=== PATIENT | male | born 1970 | race Caucasian/White ===

== ENCOUNTER 2020-05-24 03:34 | Outpatient (CLI) | payer BC, SELFPAY ==
[2020-05-24 17:45] LABS: SARS-CoV-2 RNA PCR Negative
== END 2020-05-24 03:35 | disposition home or self-care (01) ==
LOC: ANHCOVIDDT 03:34
PROVIDERS: Visit Provider Urology
DX: Z01.812 Encounter for preprocedural laboratory examination (principal); Z20.828 Contact with and (suspected) exposure to other viral communicable diseases
CPT/HCPCS: 87635; C9803; U0003

== ENCOUNTER 2020-05-27 01:09 | Day surgery (SDC) | payer BC, SELFPAY ==
[2020-05-16 11:30] VITALS: BMI 27.1
--- NOTE | 2020-05-26 16:08 | PM.IMHP ---
H&P: HPI History of Present Illness Date/Time: 05/26/20 16:08 Chief complaint: Hunner's Ulcer Narrative: Lowell Lay is a 49 year old male with Hunners ulcers. Has recurrent symptoms Review of Systems Review of Systems: All systems reviewed & are unremarkable except as noted in HPI and below PMFSH Social History Social History Smoking status: Never smoker Spiritual care concerns: No Meds Home Medications and Allergies Home Medications Medication Instructions Recorded Confirmed Type Eye Promise 2 cap PO DAILY 05/16/20 History omeprazole 20 mg PO DAILY 05/16/20 05/16/20 History Allergies Allergy/AdvReac Type Severity Reaction Status Date / Time No Known Allergies Allergy Verified 05/16/20 11:30 Exam Const: General: cooperative HENMT: Head: normal to inspection Mouth: Yes Normal oral and palatal mucosa present Eyes: General: appearance normal, both eyes and all related structures GI: Inspection: normal to inspection Skin: General skin exam: normal color Neuro: General: oriented to person Assessment and Plan Assessment and plan (1) Hunner's ulcer: Code(s): N30.10 - Interstitial cystitis (chronic) without hematuria Status: Acute Assessment and Plan: cystoscopy, biopsy, steroid injection
[2020-05-27 06:16] VITALS: BP 127/87; PULSE 77; RESP 20; TEMP 36.3; O2SAT 99
[2020-05-27] MEDS: LACTATED RINGERS 1,000 ML 30 ML IV CONT (06:24)
--- NOTE | 2020-05-27 07:00 | WPDANESEPPF ---
Anes - Initial Pre Proc Eval Procedure: Operation Date: 05/27/20 07:30 Proposed Procedures p Cystoscopy, Bladder Biopsy, Steroid Injection - Twan Mueller MD Date/Time: 05/27/20 07:00 Surgeon: Twan Mueller MD Pre Op Diagnosis: Hunner's Ulcer Patient Data Age: 49 Gender: M Height: 1.8 m Weight: 87.6 kg Last Vital Signs Temp 36.3 C L 05/27/20 06:16 Pulse 77 05/27/20 06:16 Resp 20 05/27/20 06:16 BP 127/87 05/27/20 06:16 Pulse Ox 99 05/27/20 06:16 Allergies Allergy/AdvReac Type Severity Reaction Status Date / Time No Known Allergies Allergy Verified 05/27/20 06:16 Home Medications Medication Instructions Recorded Confirmed Type Eye Promise 2 cap PO DAILY 05/16/20 05/27/20 History omeprazole 20 mg PO DAILY 05/16/20 05/27/20 History Patient hx anesthesia problems: none Family hx anesthesia problems: none FOR[facility]LY [facility], [facility] Past Medical History Medical History (Updated 05/27/20 @ 07:01 by Ramon Justin MD) Chronic GERD Social History Social History Smoking status: Never smoker Spiritual care concerns: No Anes - Eval Final PreProcedure Day of Procedure 05/27/20 07:00 Patient weight: overweight Heart: regular rate and rhythm Lungs: clear to auscultation and normal air movement Airway: Mallampati scale class II Neurological: alert and oriented Last oral intake: >/= 8 hours ASA classification: II Emergent: no Anesthetic plan: proceed Anesthesia type and monitoring: general LMA Informed Consent: The patient's anesthetic plan and its attendant risks and benefits were discussed with the patient/family/POA. Questions were solicited and answers provided to the satisfaction of the patient/family/POA.
--- NOTE | 2020-05-27 07:30 | WPDHPUPDATE1 ---
History and Physical Update Update Date/Time: 05/27/20 07:30 History and Physical has been reviewed, including an updated exam of the patient. There are NO changes in the patient's condition. Risks, benefits, and alternatives have been discussed and questions answered. Patient agrees to proceed with procedure.
[2020-05-27] MEDS: ceFAZolin 2 GM/D5W 50 ML 2 GM/50 ML BAG IVPB (07:54)
[2020-05-27] MEDS: LIDOCAINE HCL 2% GEL UROJET 10 ML PKG MUCOUS MEM (08:20)
[2020-05-27] MEDS: TRIAMCINOLONE ACET INJ 40 MG/ML VIAL 200 MG XX (08:23)
--- NOTE | 2020-05-27 08:24 | PM.PROC ---
Procedure Note - Detailed Date of procedure: 05/27/20 Pre-op diagnosis: Hunner's Ulcer Hunner's ulcer Post-op diagnosis: same Procedure performed: Cystoscopy with bladder biopsy and injection of steroid Description of procedure: After anesthesia was induced the patient was correctly identified and informed consent was obtained. They are placed in the dorsal lithotomy position. There prepped and draped in a sterile fashion. A time-out performed. I performed cystoscopy. There were 2 areas of Hunner's ulceration inside the bladder. This was biopsied in generously fulgurated. I then injected Kenalog at a dose of 40 milligrams/mL. I injected 5 cc total. There was minimal bleeding from the injection sites. The bladder was examined under low insufflation pressures and there was no active bleeding. The bladder was drained. The awakened and transferred to the PACU in stable condition. Implants: None Anesthesia: MAC Surgeon: Twan Mueller MD Drains: No Packing: No Pathology: yes (Bladder biopsy) Complications: No immediate complications Condition: stable Disposition: PACU
[2020-05-27 08:31] VITALS: BP 103/73; PULSE 78; RESP 10; O2SAT 98
[2020-05-27 09:00] VITALS: BP 113/60; PULSE 77; RESP 14; O2SAT 99
[2020-05-27 09:30] VITALS: BP 104/73; PULSE 68; RESP 14
[2020-05-27 09:50] VITALS: BP 113/79; PULSE 74; RESP 14
== END 2020-05-27 10:00 | disposition home or self-care (01) ==
PROVIDERS: Visit Provider Urology
PROC: 0TBB8ZX Excision of Bladder, Via Natural or Artificial Opening Endoscopic, Diagnostic (ICD-10-PCS; CPT 52204; principal; 2020-05-27 07:30)
DX: N30.10 Interstitial cystitis (chronic) without hematuria (principal); K21.9 Gastro-esophageal reflux disease without esophagitis
CPT/HCPCS: 52204; 52283; 88305; A9270; J0690; J2250; J2704; J3010; J3301; J7120

== ENCOUNTER 2022-01-15 13:03 | Outpatient (CLI) | payer BC, SELFPAY | END 2022-01-15 13:04 | disposition home or self-care (01) | LOC: ANHLAB 13:04 | PROVIDERS: Visit Provider Urology | DX: N32.9 Bladder disorder, unspecified (principal); Z01.818 Encounter for other preprocedural examination | CPT/HCPCS: 87086 ==

== ENCOUNTER 2022-01-19 02:24 | Day surgery (SDC) | payer BC, SELFPAY ==
[2022-01-13 09:44] VITALS: BMI 26.4
--- NOTE | 2022-01-13 10:07 | PC.NURSE ---
Report to the Outpatient Waiting Room, entrance under the green pavilion located off [facility], at 0930 on 01-19-22. OR Time: 1130. - You and your visitor will be asked a series of questions to screen for COVID 19 for your protection. - Only one visitor is allowed at this time. - The patient visitor is requested to leave or wait in car when not with patient. - A mask is required within the hospital. Patients may have clear liquids (water, carbonated beverages, clear teas, apple juice) until 3 hours prior to surgery with a maximum of 20 ounces. 0830 - No food from midnight until time of surgery - Infants may have breast milk until 4 hours before surgery, infant formula 6 hours prior to surgery. - Children will be allowed to drink immediately following surgery. If applicable, please bring a bottle or sippy cup to assist with drinking. Juice, water, soda, and popsicles are readily available. For infants on formula, please bring formula the day of surgery. Pacifiers are allowed. Take the following medications with a SIP of water the morning of surgery: None Medications to discontinue per physician: Vitamins and supplements Date to take last dose: 01-16-22 Please no make-up, nail bermudian, hairspray, perfume, deodorant, or body powder the day of surgery. No jewelry (including any body piercings) or valuables the day of surgery, leave them at home. Please take a shower or bath the night before, or the morning of, surgery with an antibacterial soap. Wear comfortable, loose fitting clothing. Children are encouraged to wear pajamas. - Jewelry must be removed prior to entering the operating room. Rings and piercings that are not removed may be cut off. - The hospital will not accept responsibility for valuables. - Please leave all valuables, including medications, at home the day of surgery. If you are going home after surgery, a licensed otr tanker truck driver must drive you home. - NO public transportation without another adult. - We recommend that an adult stay with you for 24 hours following discharge. - We also recommend that you do not drive, make important decision, drink alcoholic beverages, or take any drugs that were not prescribed by your health care provider for at least 24 hours after your discharge time. For Pediatric surgeries, we recommend two adults accompany the child home (only one inside the building at this time). Follow any additional instructions given to you from your surgeon. If you or anyone in your household have experienced Covid symptoms in the past week, please notify your surgeon or the nurse liaison at the phone number below for possible testing. Telephone instructions given to Lowell Lay and asked if any additional questions and then verbalized understanding. Patient advised to call surgeon office or pre surgery nurse liaison [phone] if any additional questions.
--- NOTE | 2022-01-18 13:38 | PM.IMHP ---
H&P: HPI History of Present Illness Date/Time: 01/18/22 13:38 Chief Complaint: Hunner ulcer Narrative: recurrent Hunner ulcer. Here today for repeat treatment Review of Systems Review of Systems: All systems reviewed & are unremarkable except as noted in HPI and below PMFSH Past Medical History Medical History Chronic GERD Social History Social History Smoking status: Never smoker Second hand tobacco smoke exposure: No Alcohol intake: current Alcohol use details: socially/rarely Substance use: never Substance use type: does not use Spiritual care concerns: No Meds Home Medications and Allergies Home Medications Medication Instructions Recorded Confirmed Type Eye Promise 2 cap PO DAILY 05/16/20 01/13/22 History omeprazole 20 mg capsule,delayed 40 mg PO DAILY 05/16/20 01/13/22 History release Allergies Allergy/AdvReac Type Severity Reaction Status Date / Time No Known Allergies Allergy Verified 01/13/22 09:41 Exam Narrative: no acute distress normal breathing alert orient x3 Assessment and Plan Assessment and plan (1) Hunner's ulcer: Code(s): N30.10 - Interstitial cystitis (chronic) without hematuria Status: Acute Assessment and Plan: cystoscopy, bladder biopsy, steroid injection
[2022-01-19] VITALS (10 sets, daily range): BP systolic 94–136; BP diastolic 70–91; PULSE 58–78; RESP 8–20; TEMP 36.3–36.4; O2SAT 97–100
--- NOTE | 2022-01-19 07:14 | WPDHPUPDATE1 ---
History and Physical Update Update Date/Time: 01/19/22 07:14 History and Physical has been reviewed, including an updated exam of the patient. There are NO changes in the patient's condition. Risks, benefits, and alternatives have been discussed and questions answered. Patient agrees to proceed with procedure.
--- NOTE | 2022-01-19 10:16 | WPDANESEPPF ---
Anes - Initial Pre Proc Eval Procedure: Operation Date: 01/19/22 11:30 Proposed Procedures p Cystoscopy Bladder Biopsy with Steroid Injections - Twan Mueller MD Date/Time: 01/19/22 10:16 Surgeon: Twan Mueller MD Pre Op Diagnosis: bladder disorder unspecified Patient Data Age: 51 Gender: M Height: 1.8 m Weight: 86.18 kg Allergies Allergy/AdvReac Type Severity Reaction Status Date / Time No Known Allergies Allergy Verified 01/13/22 09:41 Home Medications Medication Instructions Recorded Confirmed Type Eye Promise 2 cap PO DAILY 05/16/20 01/13/22 History omeprazole 20 mg capsule,delayed 40 mg PO DAILY 05/16/20 01/13/22 History release Patient hx anesthesia problems: none Family hx anesthesia problems: none Results Review: All pre-operative results and documents have been reviewed as part of the pre-operative evaluation. COUNTS INCLUDE 234 BEDS AT THE [facility] Past Medical History Medical History (Updated 01/19/22 @ 10:16 by Luis Obrien MD) Chronic GERD PRIYANKA (obstructive sleep apnea) Surgical History Surgical History (Updated 01/19/22 @ 10:16 by Luis Obrien MD) Hx of cystoscopy Social History Social History Smoking status: Never smoker Second hand tobacco smoke exposure: No Alcohol intake: current Alcohol use details: socially/rarely Substance use: never Substance use type: does not use Living arrangements: with family Spiritual care concerns: No Anes - Eval Final PreProcedure Day of Procedure 01/19/22 10:16 Patient weight: normal Heart: regular rate and rhythm Lungs: clear to auscultation Airway: Mallampati scale class II Neurological: alert and oriented Last oral intake: >/= 8 hours ASA classification: II Anesthetic plan: proceed Anesthesia type and monitoring: general GIVS and standard monitoring Results Review: All pre-operative results and documents have been reviewed as part of the pre-operative evaluation. Informed Consent: The patient's anesthetic plan and its attendant risks and benefits were discussed with the patient/family/POA. Questions were solicited and answers provided to the satisfaction of the patient/family/POA.
[2022-01-19] MEDS: LACTATED RINGERS 1,000 ML 30 ML IV CONT (10:45)
[2022-01-19] MEDS: ceFAZolin 2 GM/D5W 50 ML 2 GM/50 ML BAG IVPB (10:55)
[2022-01-19] MEDS: TRIAMCINOLONE ACET INJ 40 MG/ML VIAL 200 MG XX (11:10)
[2022-01-19] MEDS: LIDOCAINE HCL 2% GEL UROJET 10 ML PKG MUCOUS MEM (11:16)
--- NOTE | 2022-01-19 11:23 | W.PM.PROC2 ---
Procedure Note - Detailed Date of Procedure 01/19/22 Pre-op Diagnosis Hunner's ulceration Post-op Diagnosis Same Procedure Performed Cystoscopy, bladder biopsy, injection of steroid Surgeon Twan Mueller MD Anesthesia General Indications This is a gentleman with recurrent Hunner's ulcer variety interstitial cystitis. He has recurrent symptoms. He is here for treatment. He understands risks of bleeding, infection, inability to resolve the symptoms. Lack of presence of ulceration. He agrees to proceed Findings 2 separate Hunner's ulcerations near the dome of the bladder. Description of Procedure He has correctly identified. Informed consent obtained. He is brought the operating room. He was given general anesthesia. He was prepped and draped in a sterile fashion. Time-out performed. Cystoscopy was performed. He had mild trabeculations. Ureteral orifices were normal. There is no bladder tumors. There were 2 areas of Hunner's ulceration near the dome of the bladder. One of these areas was biopsied. Both were generously fulgurated. I then injected Kenalog 200 mg total into the ulcerated areas. Additional cautery was done to the injection sites. His bladder was drained. He was awakened and transferred to PACU stable condition. Implants None Estimated Blood Loss 2 Drains No Pathology Yes (Bladder biopsy) Complications No immediate complications Condition Stable
--- NOTE | 2022-01-19 11:44 | SUR.PHASEI ---
oral airway removed at 1142
[2022-01-19] MEDS: oxyCODONE HCL (*CRX) 5 MG TAB IR PO (12:40)
[2022-01-19] MEDS: PHENAZOPYRIDINE HCL 100 MG TABLET 200 MG PO (13:21)
== END 2022-01-19 13:50 | disposition home or self-care (01) ==
PROVIDERS: Visit Provider Urology
PROC: 0TBB8ZX Excision of Bladder, Via Natural or Artificial Opening Endoscopic, Diagnostic (ICD-10-PCS; CPT 52204; principal; 2022-01-19 11:30)
DX: N30.10 Interstitial cystitis (chronic) without hematuria (principal); K21.9 Gastro-esophageal reflux disease without esophagitis; G47.33 Obstructive sleep apnea (adult) (pediatric)
CPT/HCPCS: 52204; 52283; 88305; A9270; J0690; J1100; J2250; J2405; J2704; J3010; J3301; J7120

== ENCOUNTER 2022-10-09 01:13 | Day surgery (SDC) | payer BC, SELFPAY ==
[2022-09-30 08:44] VITALS: BMI 26.4
--- NOTE | 2022-09-30 08:47 | PC.NURSE ---
Report to the Outpatient Waiting Room, entrance under the green pavilion located off [facility], at time 0915 on date 10/09/22. Planned Procedure Time: 1115. Time changes happen often and if your time is changed the preop area will call you the afternoon before. - You and your visitor will be asked to self-screen and do not enter if you have any COVID symptoms. - Only one visitor is requested with a max of two and NO children visitors are allowed at this time. - The patient visitor may be requested to leave or wait in car when not with patient due to distancing restrictions. - A mask is optional within the hospital at this time. Patients may have clear liquids (water, carbonated beverages, clear teas, apple juice) until 3 hours prior to surgery with a maximum of 20 ounces. - No food from midnight until time of surgery Take the following medications with a SIP of water the morning of surgery: TRAMADOL IF NEEDED DO NOT STOP ANY OF YOUR OTHER PRESCRIPTION MEDICATIONS PRIOR TO SURGERY EXCEPT THE FOLLOWING Medications to discontinue per physician: VITAMINS/SUPPLEMENTS Date to take last dose: 10/05/22 Please no make-up, nail english, hairspray, perfume, deodorant, or body powder the day of surgery. No jewelry (including any body piercings) or valuables the day of surgery, leave them at home. Please take a shower or bath the night before, or the morning of, surgery with an antibacterial soap. Wear comfortable, loose fitting clothing. - Jewelry must be removed prior to entering the operating room. Rings and piercings that are not removed may be cut off. - The hospital will not accept responsibility for valuables. - Please leave all valuables, including medications, at home the day of surgery. If you are going home after surgery, a licensed dedicated truck driver must drive you home. - NO public transportation without another adult if you receive anesthesia. - We recommend that an adult stay with you for 24 hours following discharge. - We also recommend that you do not drive, make important decision, drink alcoholic beverages, or take any drugs that were not prescribed by your health care provider for at least 24 hours after your discharge time. Follow any additional instructions given to you from your surgeon. If you or anyone in your household have experienced Covid symptoms in the past week, please notify your surgeon or the nurse liaison at the phone number below for possible testing. Telephone instructions given to PT - LOKI BECK and asked if any additional questions and then verbalized understanding. Patient advised to call surgeon office or pre surgery nurse liaison [phone] if any additional questions.
--- NOTE | 2022-10-05 12:48 | PM.IMHP ---
H&P: HPI History of Present Illness Date/Time: 10/05/22 12:48 Chief Complaint: Hunner's ulcer Narrative: Ready for another steroid injection Review of Systems Review of Systems: All systems reviewed & are unremarkable except as noted in HPI and below PMFSH Past Medical History Medical History Chronic GERD PRIYANKA (obstructive sleep apnea) Surgical History Surgical History Hx of cystoscopy Social History Social History Smoking status: Never smoker Second hand tobacco smoke exposure: No Alcohol intake: current Alcohol use details: VERY RARE Substance use: never Substance use type: does not use Living arrangements: with family Spiritual care concerns: No Meds Home Medications and Allergies Home Medications Medication Instructions Recorded Confirmed Type Eye Promise 2 cap PO DAILY 05/16/20 09/30/22 History omeprazole 20 mg capsule,delayed 40 mg PO DAILY 05/16/20 09/30/22 History release phenazopyridine 200 mg tablet 200 mg PO TID PRN pain 6 doses #30 01/19/22 09/30/22 Rx (Pyridium) tabs tramadol 50 mg tablet 50 mg PO Q6H PRN pain #20 tabs 01/19/22 09/30/22 Rx Allergies Allergy/AdvReac Type Severity Reaction Status Date / Time No Known Allergies Allergy Verified 09/30/22 08:44 Exam Narrative: No acute distress Normal breathing Alert orient x3 Assessment and Plan Assessment and plan (1) Hunner's ulcer: Code(s): N30.10 - Interstitial cystitis (chronic) without hematuria Status: Acute Plan Cystoscopy, bladder biopsy, steroid injection. Understands risks of bleeding, infection, damage to the retract, lack of efficacy. Agrees to proceed
--- NOTE | 2022-10-09 07:14 | WPDHPUPDATE1 ---
History and Physical Update Update Date/Time: 10/09/22 07:14 History and Physical has been reviewed, including an updated exam of the patient. There are NO changes in the patient's condition. Risks, benefits, and alternatives have been discussed and questions answered. Patient agrees to proceed with procedure.
[2022-10-09 10:08] VITALS: BP 128/80; PULSE 84; RESP 14; TEMP 36.7; O2SAT 98
--- NOTE | 2022-10-09 10:10 | P.PNAN_ITS ---
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 Patient Data Age: 52 Gender: M Height: 1.8 m Weight: 86.2 kg Allergies Allergy/AdvReac Type Severity Reaction Status Date / Time No Known Allergies Allergy Verified 10/09/22 10:13 Home Medications Medication Instructions Recorded Confirmed Type Eye Promise 2 cap PO DAILY 05/16/20 09/30/22 History omeprazole 20 mg capsule,delayed 40 mg PO DAILY 05/16/20 09/30/22 History release phenazopyridine 200 mg tablet 200 mg PO TID PRN pain 6 doses #30 01/19/22 09/30/22 Rx (Pyridium) tabs tramadol 50 mg tablet 50 mg PO Q6H PRN pain #20 tabs 01/19/22 09/30/22 Rx Patient hx anesthesia problems: none Family hx anesthesia problems: none Results Review: All pre-operative results and documents have been reviewed as part of the pre- operative evaluation. FORMERLY [facility] Past Medical History Medical History Chronic GERD PRIYANKA (obstructive sleep apnea) Surgical History Surgical History Hx of cystoscopy Social History Social History Smoking status: Never smoker Second hand tobacco smoke exposure: No Alcohol intake: current Alcohol use details: VERY RARE Substance use: never Substance use type: does not use Living arrangements: with family Spiritual care concerns: No Anes - Eval Final PreProcedure Day of Procedure 10/09/22 10:10 Patient weight: normal Heart: regular rate and rhythm Lungs: clear to auscultation Airway: Mallampati scale class II Neurological: alert and oriented Last oral intake: >/= 8 hours ASA classification: II Emergent: no Anesthetic plan: proceed Anesthesia type and monitoring: general LMA and standard monitoring Results Review: All pre-operative results and documents have been reviewed as part of the pre- operative evaluation. Informed Consent: The patient's anesthetic plan and its attendant risks and benefits were discussed with the patient/family/POA. Questions were solicited and answers provided to the satisfaction of the patient/family/POA.
[2022-10-09] MEDS: LACTATED RINGERS 1,000 ML 30 ML IV CONT (10:13)
[2022-10-09] MEDS: ceFAZolin 2 GM/D5W 50 ML 2 GM/50 ML BAG IVPB (11:19)
[2022-10-09] MEDS: LIDOCAINE HCL 2% GEL UROJET 10 ML PKG MUCOUS MEM (11:28)
[2022-10-09] MEDS: TRIAMCINOLONE ACET INJ 40 MG/ML VIAL 200 MG XX (11:29)
--- NOTE | 2022-10-09 11:44 | P.OP_ITS ---
Procedure Note - Detailed Date of Procedure 10/09/22 Pre-op Diagnosis hypervascular lesion of urinary bladder Post-op Diagnosis Same Procedure Performed Cystoscopy, bladder biopsy, steroid injection Surgeon Twan Mueller MD Anesthesia MAC and Local Indications this is a man with recurrent Hunner's ulcerations. He is here today for repeat treatment. Understands risks of bleeding, infection, damage to the urinary tract, need for repeat procedures. Blood agrees to proceed Findings Hunner's ulceration at anterior bladder neck /dome of the bladder Description of Procedure he has correctly identified. Informed consent obtained. From the operating room. He was given MAC anesthesia. He was placed in dorsal lithotomy position. Pressure points were padded. He was given appropriate perioperative a ntibiotics. A time-out performed. I applied Uro jet. I performed cystoscopy. He had a minimally obstructive prostate. He had areas of Hunner's ulceration the anterior bladder neck and near the dome was bladder. There was some dystrophic calcifications the area was removed. I biopsied the bladder lesion. I then injected Kenalog. 2 mg total. 40 milligrams/mL. I then generously fulgurated the biopsy and bleeding sites. There was no bleeding under low insufflation pressures. His bladder was drained. He was awakened transferred to PACU in stable condition. Estimated Blood Loss 1 Pathology Yes ( Bladder biopsy) Complications No immediate complications Condition Stable Disposition PACU
[2022-10-09 11:45] VITALS: BP 114/87; PULSE 89; RESP 15; O2SAT 97
[2022-10-09 12:15] VITALS: BP 125/78; PULSE 73
[2022-10-09 12:45] VITALS: BP 135/80; PULSE 81; RESP 12
== END 2022-10-09 13:10 | disposition home or self-care (01) ==
PROVIDERS: Visit Provider Urology
PROC: 0TBB8ZX Excision of Bladder, Via Natural or Artificial Opening Endoscopic, Diagnostic (ICD-10-PCS; CPT 52204; principal; 2022-10-09 11:15)
DX: N30.10 Interstitial cystitis (chronic) without hematuria (principal); K21.9 Gastro-esophageal reflux disease without esophagitis; G47.33 Obstructive sleep apnea (adult) (pediatric)
CPT/HCPCS: 52204; 52283; 88305; J0690; J2250; J2704; J3010; J3301; J7120

== ENCOUNTER 2023-06-07 01:23 | Day surgery (SDC) | payer BC, SELFPAY ==
[2023-05-31 11:31] VITALS: BMI 26.4
--- NOTE | 2023-05-31 11:35 | PC.NURSE ---
Report to the Outpatient Waiting Room, entrance under the green pavilion located off [facility], at time 1330 on date 06/07/23. Planned Procedure Time: 1530. Time changes happen often and if your time is changed the preop area will call you the afternoon before. - You and your visitor will be asked to self-screen and do not enter if you have any COVID symptoms. - A mask is optional within the hospital at this time. Patients may have clear liquids (water, carbonated beverages, clear teas, apple juice) until 3 hours prior to surgery with a maximum of 20 ounces. - No food from midnight until time of surgery Take the following medications with a SIP of water the morning of surgery: METOPROLOL DO NOT STOP ANY OF YOUR OTHER PRESCRIPTION MEDICATIONS PRIOR TO SURGERY ?EXCEPT THE FOLLOWING Medications to discontinue per physician: N/A Date to take last dose: N/A Please no make-up, nail mexican, hairspray, perfume, deodorant, or body powder the day of surgery. No jewelry (including any body piercings) or valuables the day of surgery, leave them at home. Please take a shower or bath the night before, or the morning of, surgery with an antibacterial soap. Wear comfortable, loose fitting clothing. - Jewelry must be removed prior to entering the operating room. Rings and piercings that are not removed may be cut off. - The hospital will not accept responsibility for valuables. - Please leave all valuables, including medications, at home the day of surgery. If you are going home after surgery, a licensed tractor driver teamster must drive you home. - NO public transportation without another adult if you receive anesthesia. - We recommend that an adult stay with you for 24 hours following discharge. - We also recommend that you do not drive, make important decision, drink alcoholic beverages, or take any drugs that were not prescribed by your health care provider for at least 24 hours after your discharge time. Follow any additional instructions given to you from your surgeon. If you or anyone in your household have experienced Covid symptoms in the past week, please notify your surgeon or the nurse liaison at the phone number below for possible testing. Telephone instructions given to PT - LOKI BECK and asked if any additional questions and then verbalized understanding. Patient advised to call surgeon office or pre surgery nurse liaison [phone] if any additional questions.
--- NOTE | 2023-06-06 09:27 | PM.IMHP ---
H&P: HPI History of Present Illness Date/Time: 06/06/23 09:27 Chief Complaint: surgical procedure Narrative: history of Hunner's ulceration. Presents for repeat proceed Review of Systems Review of Systems: All systems reviewed & are unremarkable except as noted in HPI and below PMFSH Past Medical History Medical History Chronic GERD PRIYANKA (obstructive sleep apnea) Surgical History Surgical History Hx of cystoscopy Social History Social History Smoking status: Never smoker Second hand tobacco smoke exposure: No Alcohol intake: never Alcohol use details: VERY RARE Substance use: never Substance use type: does not use Living arrangements: with family Spiritual care concerns: No Meds Home Medications and Allergies Home Medications Medication Instructions Recorded Confirmed Type omeprazole 20 mg capsule,delayed 40 mg PO DAILY 05/16/20 05/31/23 History release metoprolol succinate 25 mg 25 mg PO DAILY 05/31/23 05/31/23 History tablet,extended release 24 hr tadalafil 5 mg tablet 5 mg PO DAILY 05/31/23 05/31/23 History tamsulosin 0.4 mg capsule 0.4 mg PO DAILY 05/31/23 05/31/23 History Allergies Allergy/AdvReac Type Severity Reaction Status Date / Time No Known Allergies Allergy Verified 05/31/23 11:28 Exam Narrative: no acute distress normal breathing alert and orient x3 Assessment and Plan Assessment and plan (1) 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 Understands risks of bleeding, infection, damage to the urinary tract, need for repeat procedures, agrees to proceed
[2023-06-07] VITALS (9 sets, daily range): BP systolic 98–157; BP diastolic 69–103; PULSE 76–97; RESP 11–16; TEMP 36.1–37.1; O2SAT 96–100
--- NOTE | 2023-06-07 07:13 | WPDHPUPDATE1 ---
History and Physical Update Update Date/Time: 06/07/23 07:13 History and Physical has been reviewed, including an updated exam of the patient. There are NO changes in the patient's condition. Risks, benefits, and alternatives have been discussed and questions answered. Patient agrees to proceed with procedure.
[2023-06-07] MEDS: LACTATED RINGERS 1,000 ML 30 ML IV CONT ×3 (08:56→13:29)
--- NOTE | 2023-06-07 10:31 | P.PNAN_ITS ---
Anes - Initial Pre Proc Eval Procedure: Operation Date: 06/07/23 10:30 Proposed Procedures p Cystoscopy, Bladder Biopsy with Steroid Injection - Twan Mueller MD Date/Time: 06/07/23 10:31 Surgeon: Twan Mueller MD Pre Op Diagnosis: hyper vascular lesion of bladder Patient Data Age: 53 Gender: M Height: 1.8 m Weight: 84.7 kg Last Vital Signs Temp 98.8 F 06/07/23 08:39 Pulse 81 06/07/23 08:39 Resp 16 06/07/23 08:39 BP 136/83 06/07/23 08:39 Pulse Ox 96 06/07/23 08:39 O2 Del Method Room Air 06/07/23 08:39 Allergies Allergy/AdvReac Type Severity Reaction Status Date / Time No Known Allergies Allergy Verified 05/31/23 11:28 Home Medications Medication Instructions Recorded Confirmed Type omeprazole 20 mg capsule,delayed 40 mg PO DAILY 05/16/20 05/31/23 History release metoprolol succinate 25 mg 25 mg PO DAILY 05/31/23 05/31/23 History tablet,extended release 24 hr tadalafil 5 mg tablet 5 mg PO DAILY 05/31/23 05/31/23 History tamsulosin 0.4 mg capsule 0.4 mg PO DAILY 05/31/23 05/31/23 History phenazopyridine 200 mg tablet 200 mg PO TID PRN pain 6 doses #6 06/07/23 Rx (Pyridium) tabs tramadol 50 mg tablet 50 mg PO Q6H PRN pain #20 tabs 06/07/23 Rx Patient hx anesthesia problems: none Family hx anesthesia problems: none Results Review: All pre-operative results and documents have been reviewed as part of the pre- operative evaluation. [facility] Past Medical History Medical History Chronic GERD PRIYANKA (obstructive sleep apnea) Surgical History Surgical History Hx of cystoscopy Social History Social History Smoking status: Never smoker Second hand tobacco smoke exposure: No Alcohol intake: never Alcohol use details: VERY RARE Substance use: never Substance use type: does not use Living arrangements: with family Spiritual care concerns: No Anes - Eval Final PreProcedure Day of Procedure 06/07/23 10:31 Patient weight: normal Heart: regular rate and rhythm Lungs: clear to auscultation Airway: Mallampati scale Neurological: alert and oriented Last oral intake: >/= 8 hours ASA classification: II Emergent: no Anesthetic plan: proceed Anesthesia type and monitoring: general LMA and standard monitoring Results Review: All pre-operative results and documents have been reviewed as part of the pre- operative evaluation. Informed Consent: The patient's anesthetic plan and its attendant risks and benefits were discussed with the patient/family/POA. Questions were solicited and answers provided to the satisfaction of the patient/family/POA.
[2023-06-07] MEDS: ceFAZolin 2 GM/D5W 50 ML 2 GM/50 ML BAG IVPB (10:38)
[2023-06-07] MEDS: LIDOCAINE HCL 2% GEL UROJET 10 ML PKG MUCOUS MEM (10:49)
[2023-06-07] MEDS: TRIAMCINOLONE ACET INJ 40 MG/ML VIAL 200 MG IM (10:50)
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
--- NOTE | 2023-06-07 13:33 | SUR.PHASEII ---
1245 PATIENT STATES HE VOIDED A STREAM WITH DRIPS OF BLOOD. 1330 BLADDER SCAN SHOWED 31 ML URINE.
--- NOTE | 2023-06-07 14:20 | SUR.PHASEII ---
1405 PATIENT REPORTS A SECOND VOID WITH A STREAM OF URINE.
== END 2023-06-07 14:20 | disposition home or self-care (01) ==
PROVIDERS: Visit Provider Urology
PROC: 0TBB8ZX Excision of Bladder, Via Natural or Artificial Opening Endoscopic, Diagnostic (ICD-10-PCS; CPT 52204; principal; 2023-06-07 10:30)
DX: N30.10 Interstitial cystitis (chronic) without hematuria (principal); D72.18 Eosinophilia in diseases classified elsewhere; K21.9 Gastro-esophageal reflux disease without esophagitis; G47.33 Obstructive sleep apnea (adult) (pediatric); Z79.891 Long term (current) use of opiate analgesic
CPT/HCPCS: 52204; 52283; 88305; J0690; J1100; J2250; J2405; J2704; J3010; J3301; J7120

== ENCOUNTER 2023-12-17 00:29 | Day surgery (SDC) | payer BC, SELFPAY ==
[2023-12-10 08:35] VITALS: BMI 26.4
--- NOTE | 2023-12-10 08:49 | PC.NURSE ---
Report to the Outpatient Waiting Room, entrance under the green pavilion located off [facility], at time ___6:00AM____ on date ___12/17/23____. Planned Procedure Time: __7:30AM . Time changes happen often and if your time is changed the preop area will call you the afternoon before. - You and your visitor will be asked to self-screen and do not enter if you have any COVID symptoms. - A mask is optional within the hospital at this time. Patients may have clear liquids (water, carbonated beverages, clear teas, apple juice) until 3 hours prior to surgery with a maximum of 20 ounces. - No food from midnight until time of surgery - Infants may have breast milk until 4 hours before surgery, infant formula 6 hours prior to surgery. - Children will be allowed to drink immediately following surgery. If applicable, please bring a bottle or sippy cup to assist with drinking. Juice, water, soda, and popsicles are readily available. For infants on formula, please bring formula the day of surgery. Pacifiers are allowed. Take the following medications with a SIP of water the morning of surgery: ___METOPROLOL DO NOT STOP ANY OF YOUR OTHER PRESCRIPTION MEDICATIONS PRIOR TO SURGERY ?EXCEPT THE FOLLOWING Medications to discontinue per physician NONE Date to take last dose Please no make-up, nail arabic, hairspray, perfume, deodorant, or body powder the day of surgery. No jewelry (including any body piercings) or valuables the day of surgery, leave them at home. Please take a shower or bath the night before, or the morning of, surgery with an antibacterial soap. Wear comfortable, loose fitting clothing. Children are encouraged to wear pajamas. - Jewelry must be removed prior to entering the operating room. Rings and piercings that are not removed may be cut off. - The hospital will not accept responsibility for valuables. - Please leave all valuables, including medications, at home the day of surgery. If you are going home after surgery, a licensed line haul driver must drive you home. - NO public transportation without another adult if you receive anesthesia. - We recommend that an adult stay with you for 24 hours following discharge. - We also recommend that you do not drive, make important decision, drink alcoholic beverages, or take any drugs that were not prescribed by your health care provider for at least 24 hours after your discharge time. For Pediatric surgeries, we recommend two adults accompany the child home. Follow any additional instructions given to you from your surgeon. If you or anyone in your household have experienced Covid symptoms in the past week, please notify your surgeon or the nurse liaison at the phone number below for possible testing. Telephone instructions given to ____PATIENT and asked if any additional questions and then verbalized understanding. Patient advised to call surgeon office or pre surgery nurse liaison [phone] if any additional questions.
--- NOTE | 2023-12-12 08:54 | PM.IMHP ---
H&P: HPI History of Present Illness Date/Time: 12/12/23 08:54 Chief Complaint: Hunner Ulcer Narrative: presents for cystoscopy and steroid injection Review of Systems Review of Systems: All systems reviewed & are unremarkable except as noted in HPI and below PMFSH Past Medical History Medical History Chronic GERD PRIYANKA (obstructive sleep apnea) Surgical History Surgical History Hx of cystoscopy Social History Social History Smoking status: Never smoker Second hand tobacco smoke exposure: No Alcohol intake: never Alcohol use details: VERY RARE Substance use: never Substance use type: does not use Living arrangements: with family Additional living arrangements comments: & KIDS Spiritual care concerns: No Meds Home Medications and Allergies Home Medications Medication Instructions Recorded Confirmed Type metoprolol succinate 25 mg 25 mg PO QAM 05/31/23 12/10/23 History tablet,extended release 24 hr tadalafil 5 mg tablet 5 mg PO DAILY 05/31/23 12/10/23 History phenazopyridine 200 mg tablet 200 mg PO TID PRN pain 6 doses #6 06/07/23 12/10/23 Rx (Pyridium) tabs omeprazole 40 mg capsule,delayed 40 mg PO DAILY 12/10/23 12/10/23 History release Allergies Allergy/AdvReac Type Severity Reaction Status Date / Time No Known Allergies Allergy Verified 12/10/23 08:32 Exam Narrative: NAD normal breathing A+O x3 Assessment and Plan Assessment and plan (1) 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
--- NOTE | 2023-12-17 04:42 | WPDHPUPDATE1 ---
History and Physical Update Update Date/Time: 12/17/23 04:42 History and Physical has been reviewed, including an updated exam of the patient. There are NO changes in the patient's condition. Risks, benefits, and alternatives have been discussed and questions answered. Patient agrees to proceed with procedure.
[2023-12-17] MEDS: LACTATED RINGERS 1,000 ML 30 ML IV CONT (06:24)
[2023-12-17 06:45] VITALS: BP 131/87; PULSE 72; RESP 16; TEMP 36.5; O2SAT 99
--- NOTE | 2023-12-17 07:14 | P.PNAN_ITS ---
Anes - Initial Pre Proc Eval Procedure: Operation Date: 12/17/23 07:30 Proposed Procedures p Cystoscopy, Bladder Biopsy with Steroid Injection - Twan Mueller MD Date/Time: 12/17/23 07:14 Surgeon: Twan Mueller MD Pre Op Diagnosis: hunners ulcer Patient Data Age: 53 Gender: M Height: 1.8 m Weight: 84.1 kg Last Vital Signs Temp 97.7 F 12/17/23 06:45 Pulse 72 12/17/23 06:45 Resp 16 12/17/23 06:45 BP 131/87 12/17/23 06:45 Pulse Ox 99 12/17/23 06:45 O2 Del Method Room Air 12/17/23 06:45 Allergies Allergy/AdvReac Type Severity Reaction Status Date / Time No Known Allergies Allergy Verified 12/17/23 06:08 Home Medications Medication Instructions Recorded Confirmed Type metoprolol succinate 25 mg 25 mg PO QAM 05/31/23 12/17/23 History tablet,extended release 24 hr tadalafil 5 mg tablet 5 mg PO DAILY 05/31/23 12/10/23 History phenazopyridine 200 mg tablet 200 mg PO TID PRN pain 6 doses #6 06/07/23 12/10/23 Rx (Pyridium) tabs omeprazole 40 mg capsule,delayed 40 mg PO DAILY 12/10/23 12/17/23 History release Patient hx anesthesia problems: none Family hx anesthesia problems: none Results Review: All pre-operative results and documents have been reviewed as part of the pre- operative evaluation. [facility] Past Medical History Medical History Chronic GERD PRIYANKA (obstructive sleep apnea) Surgical History Surgical History Hx of cystoscopy Social History Social History Smoking status: Never smoker Second hand tobacco smoke exposure: No Alcohol intake: never Alcohol use details: VERY RARE Substance use: never Substance use type: does not use Living arrangements: with family Additional living arrangements comments: & KIDS Spiritual care concerns: No Anes - Eval Final PreProcedure Day of Procedure 12/17/23 07:14 Patient weight: overweight Heart: regular rate and rhythm Lungs: clear to auscultation Airway: Mallampati scale class II Neurological: alert and oriented Last oral intake: >/= 8 hours ASA classification: II Emergent: no Anesthetic plan: proceed Anesthesia type and monitoring: general LMA and standard monitoring Results Review: All pre-operative results and documents have been reviewed as part of the pre- operative evaluation. HTN, pt has not yet taken b aleshia this am, PRIYANKA, not compliant w CPAP. Informed Consent: The patient's anesthetic plan and its attendant risks and benefits were discussed with the patient/family/POA. Questions were solicited and answers provided to the satisfaction of the patient/family/POA.
[2023-12-17] MEDS: ceFAZolin 2 GM/D5W 50 ML 2 GM/50 ML BAG IVPB (07:36)
[2023-12-17] MEDS: TRIAMCINOLONE ACET INJ 40 MG/ML VIAL 200 MG IM (07:41)
[2023-12-17 07:57] VITALS: BP 133/103; PULSE 75; RESP 18; O2SAT 94
--- NOTE | 2023-12-17 08:02 | P.OP_ITS ---
Procedure Note - Detailed Date of Procedure 12/17/23 Pre-op Diagnosis hunners ulcer Post-op Diagnosis Same Procedure Performed Cystoscopy, bladder biopsy, injection of steroid Surgeon Twan Mueller MD District Court Judge None Anesthesia MAC and Local Indications A gentleman with Hunner's ulcer variety interstitial cystitis. She was here today for repeat treatment. Understands risks of bleeding, infection, damage to inject, need for repeat procedures. He agrees to proceed Findings 2 areas of Hunner's ulceration on the anterior bladder neck dome area of the bladder Description of Procedure He has correctly identified. Informed consent obtained. From the operating room. He was given monitored anesthesia care. Placed in dorsal lithotomy position. Prepped and draped sterile fashion. He was given appropriate perioperative antibiotics. Time-out performed. I performed cystoscopy. Prostate is nonobstructive. Ureteral orifices were normal. There was mild trabeculation. On the anterior bladder neck/dome area of the bladder there was 2 areas of Hunner's ulceration. There was dystrophic calcifications. These calcifications were removed with a grasper. I then biopsied the ulcerated areas. I sent this for analysis. I then injected Kenalog. 2 mg total. A concentration of 40 milligrams/mL for a total of 5 cc. I then fulgurated the injection sites and the ulcerated areas. All fulguration was done away from the ureteral orifice. There was no significant bleeding under low insufflation pressures. His bladder was drained. He was awakened transferred to PACU in stable condition
[2023-12-17 08:20] VITALS: BP 148/89; PULSE 64; RESP 18; O2SAT 98
[2023-12-17 08:40] VITALS: BP 137/84; PULSE 69; RESP 18
== END 2023-12-17 08:42 | disposition home or self-care (01) ==
PROVIDERS: Visit Provider Urology
PROC: 0TBB8ZX Excision of Bladder, Via Natural or Artificial Opening Endoscopic, Diagnostic (ICD-10-PCS; CPT 52204; principal; 2023-12-17 07:30)
DX: N30.10 Interstitial cystitis (chronic) without hematuria (principal); G47.33 Obstructive sleep apnea (adult) (pediatric); K21.9 Gastro-esophageal reflux disease without esophagitis
CPT/HCPCS: 52204; 52283; 88305; J0690; J2704; J3010; J3301; J7120

== ENCOUNTER 2024-06-19 00:29 | Day surgery (SDC) | payer BC, SELFPAY ==
[2024-06-12 14:01] VITALS: BMI 26.5
--- NOTE | 2024-06-12 14:02 | PC.NURSE ---
Report to the Outpatient Waiting Room, entrance under the green pavilion located off [facility], at time _0900_ on date _[id number]_. Planned Procedure Time: _1100_.? Time changes happen often and if your time is changed the preop area will call you the afternoon before. - You and your visitor will be asked to self-screen and do not enter if you have any COVID symptoms. Please call surgeon if you need to reschedule. - A mask is optional within the hospital at this time. Patients may have clear liquids (water, carbonated beverages, clear teas, apple juice) until 3 hours prior to surgery with a maximum of 20 ounces. - No food from midnight until time of surgery and no smoking Take only the following medications with a SIP of water on the morning of surgery: ___Metoprolol DO NOT STOP ANY OF YOUR OTHER PRESCRIPTION MEDICATIONS PRIOR TO SURGERY EXCEPT THE FOLLOWING Medications to discontinue per physician __None____ Please no make-up, nail pakistani, hairspray, perfume, deodorant, or body powder the day of surgery.? No jewelry (including any body piercings) or valuables the day of surgery, leave them at home.? Please take a shower or bath the night before, or the morning of, surgery with an antibacterial soap.? Wear comfortable, loose fitting clothing.? - Jewelry must be removed prior to entering the operating room.? Rings and piercings that are not removed may be cut off. - The hospital will not accept responsibility for valuables.? - Please leave all valuables, including medications, at home the day of surgery. If you are going home after surgery, a licensed local intermodal truck driver must drive you home.? - NO public transportation without another adult if you receive anesthesia. - We recommend that an adult stay with you for 24 hours following discharge. - We also recommend that you do not drive, make important decision, drink alcoholic beverages, or take any drugs that were not prescribed by your health care provider for at least 24 hours after your discharge time. Follow any additional instructions given to you from your surgeon. Telephone instructions given to Sonny___and asked if any additional questions and then verbalized understanding. Patient advised to call surgeon office or pre surgery nurse liaison [phone] if any additional questions.
--- NOTE | 2024-06-18 13:50 | PM.IMHP ---
H&P: HPI History of Present Illness Date/Time: 06/18/24 13:50 Chief Complaint: hunner ulcer Narrative: repeat steroid injection Review of Systems Review of Systems: All systems reviewed & are unremarkable except as noted in HPI and below PMFSH Past Medical History Medical History Chronic GERD PRIYANKA (obstructive sleep apnea) Surgical History Surgical History Hx of cystoscopy Social History Social History Smoking status: Never smoker Second hand tobacco smoke exposure: No Alcohol intake: current Alcohol use details: VERY RARE Substance use: never Substance use type: does not use Living arrangements: with family Additional living arrangements comments: & KIDS Spiritual care concerns: No Meds Home Medications and Allergies Home Medications Medication Instructions Recorded Confirmed Type metoprolol succinate 25 mg 25 mg PO QAM 05/31/23 06/12/24 History tablet,extended release 24 hr tadalafil 5 mg tablet 5 mg PO DAILY 05/31/23 06/12/24 History phenazopyridine 200 mg tablet 200 mg PO TID PRN pain 6 doses #6 06/07/23 06/12/24 Rx (Pyridium) tabs omeprazole 40 mg capsule,delayed 40 mg PO DAILY 12/10/23 06/12/24 History release tramadol 50 mg tablet 50 mg PO Q6H PRN pain #10 tabs 12/17/23 06/12/24 Rx Allergies Allergy/AdvReac Type Severity Reaction Status Date / Time No Known Allergies Allergy Verified 06/12/24 13:55 Exam Narrative: NAD A+O x3 Assessment and Plan Assessment and plan (1) 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
--- NOTE | 2024-06-19 04:40 | WPDHPUPDATE1 ---
History and Physical Update Update Date/Time: 06/19/24 04:40 History and Physical has been reviewed, including an updated exam of the patient. There are NO changes in the patient's condition. Risks, benefits, and alternatives have been discussed and questions answered. Patient agrees to proceed with procedure.
[2024-06-19 10:00] VITALS: BP 133/86; PULSE 73; RESP 14; TEMP 36.6; O2SAT 97
[2024-06-19] MEDS: LACTATED RINGERS 1,000 ML 30 ML IV CONT (10:00)
--- NOTE | 2024-06-19 10:16 | WPDANESEPPF ---
Anes - Initial Pre Proc Eval Procedure: Operation Date: 06/19/24 11:00 Proposed Procedures p Cystoscopy, Bladder Biopsy with Steroid Injection - Twan Mueller MD Date/Time: 06/19/24 10:16 Surgeon: Twan Mueller MD Pre Op Diagnosis: hunners ulcer Patient Data Age: 54 Gender: M Height: 1.8 m Weight: 84.2 kg Last Vital Signs Temp 36.6 C 06/19/24 10:00 Pulse 73 06/19/24 10:00 Resp 14 06/19/24 10:00 BP 133/86 06/19/24 10:00 Pulse Ox 97 06/19/24 10:00 O2 Del Method Room Air 06/19/24 10:00 Allergies Allergy/AdvReac Type Severity Reaction Status Date / Time No Known Allergies Allergy Verified 06/19/24 10:05 Home Medications Medication Instructions Recorded Confirmed Type metoprolol succinate 25 mg 25 mg PO QAM 05/31/23 06/19/24 History tablet,extended release 24 hr tadalafil 5 mg tablet 5 mg PO DAILY 05/31/23 06/12/24 History phenazopyridine 200 mg tablet 200 mg PO TID PRN pain 6 doses #6 06/07/23 06/12/24 Rx (Pyridium) tabs omeprazole 40 mg capsule,delayed 40 mg PO DAILY 12/10/23 06/12/24 History release tramadol 50 mg tablet 50 mg PO Q6H PRN pain #10 tabs 12/17/23 06/12/24 Rx Patient hx anesthesia problems: none Family hx anesthesia problems: none Results Review: All pre-operative results and documents have been reviewed as part of the pre-operative evaluation. [facility] Past Medical History Medical History (Updated 06/19/24 @ 10:16 by Luis Obrien MD) Chronic GERD HTN (hypertension) PRIYANKA (obstructive sleep apnea) Surgical History Surgical History Hx of cystoscopy Social History Social History Smoking status: Never smoker Second hand tobacco smoke exposure: No Alcohol intake: current Alcohol use details: VERY RARE Substance use: never Substance use type: does not use Living arrangements: with family Additional living arrangements comments: & KIDS Spiritual care concerns: No Anes - Eval Final PreProcedure Day of Procedure 06/19/24 10:16 Patient weight: normal Heart: regular rate and rhythm Lungs: clear to auscultation Airway: Mallampati scale class II Neurological: alert and oriented Last oral intake: >/= 8 hours ASA classification: II Emergent: no Anesthetic plan: proceed Anesthesia type and monitoring: general LMA and standard monitoring Results Review: All pre-operative results and documents have been reviewed as part of the pre-operative evaluation. Informed Consent: The patient's anesthetic plan and its attendant risks and benefits were discussed with the patient/family/POA. Questions were solicited and answers provided to the satisfaction of the patient/family/POA.
[2024-06-19] MEDS: ceFAZolin 2 GM/D5W 50 ML 2 GM/50 ML BAG IVPB (10:34)
[2024-06-19] MEDS: LIDOCAINE HCL 2% GEL UROJET 10 ML PKG MUCOUS MEM (10:50)
[2024-06-19] MEDS: TRIAMCINOLONE ACET INJ 40 MG/ML VIAL 200 MG IM (10:51)
--- NOTE | 2024-06-19 10:55 | W.PM.PROC2 ---
Procedure Note - Detailed Date of Procedure 06/19/24 Pre-op Diagnosis hunners ulcer Post-op Diagnosis Same Procedure Performed Cystoscopy, bladder biopsy, injection of steroids Surgeon Twan Mueller MD Anesthesia MAC and Local (Uro jet) Indications A gentleman with recurrent Hunner's ulcer variety interstitial cystitis. Presents today for repeat treatment Findings Areas of Hunner's ulceration on the dome of the bladder Description of Procedure He has correctly identified. Informed consent obtained. From the operating room. He was given monitored anesthesia care. Placed in dorsal lithotomy position. Prepped draped sterile fashion. Time-out performed. Examination revealed no obstruction of the prostatic urethra. He had a small prostate without obstructing lobes. He had mild trabeculations. Ureteral orifices were normal on the floor the bladder. There were 2 areas of Hunner's ulceration on the anterior bladder neck dome area. This was biopsied and sent for analysis. I then injected Kenalog. 40 milligrams/mL of Kenalog. 5 mL total. I then generously fulgurated the sites. All fulguration was done away from the ureteral orifice. There was no bleeding low insufflation pressures. The bladder was drained. He was awakened transferred to PACU in stable condition. Estimated Blood Loss 1 Pathology Yes (Bladder biopsy) Complications None Condition Stable Disposition PACU
[2024-06-19 11:02] VITALS: BP 141/82; PULSE 76; RESP 14
[2024-06-19 11:30] VITALS: BP 136/79; PULSE 64; RESP 14; O2SAT 99
[2024-06-19 12:00] VITALS: BP 144/90; PULSE 71; RESP 14
== END 2024-06-19 12:20 | disposition home or self-care (01) ==
PROVIDERS: Visit Provider Urology
PROC: 0TBB8ZX Excision of Bladder, Via Natural or Artificial Opening Endoscopic, Diagnostic (ICD-10-PCS; CPT 52204; principal; 2024-06-19 11:00)
DX: N30.10 Interstitial cystitis (chronic) without hematuria (principal); I10 Essential (primary) hypertension; G47.33 Obstructive sleep apnea (adult) (pediatric); K21.9 Gastro-esophageal reflux disease without esophagitis
CPT/HCPCS: 52283; 52204; 88305; J0690; J2003; J2250; J2704; J3010; J3301; J7120

== ENCOUNTER 2024-12-29 01:06 | Day surgery (SDC) | payer BC, SELFPAY ==
--- NOTE | 2024-12-26 04:52 | PM.IMHP ---
H&P: HPI History of Present Illness Date/Time: 12/26/24 04:52 Chief Complaint: hunner ulcer Narrative: repeat steroid injection Review of Systems Review of Systems: All systems reviewed & are unremarkable except as noted in HPI and below PMFSH Past Medical History Medical History HTN (hypertension) PRIYANKA (obstructive sleep apnea) Chronic GERD Surgical History Surgical History Hx of cystoscopy Social History Social History Smoking status: Never smoker Second hand tobacco smoke exposure: No Alcohol intake: current Alcohol use details: VERY RARE Substance use: never Substance use type: does not use Living arrangements: with family Additional living arrangements comments: & KIDS Spiritual care concerns: No Meds Home Medications and Allergies Home Medications ?Medication ?Instructions ?Recorded ?Confirmed ?Type metoprolol succinate 25 mg 25 mg PO QAM 05/31/23 06/19/24 History tablet,extended release 24 hr tadalafil 5 mg tablet 5 mg PO DAILY 05/31/23 06/12/24 History phenazopyridine 200 mg tablet 200 mg PO TID PRN pain 6 doses #6 06/07/23 06/12/24 Rx (Pyridium) tabs omeprazole 40 mg capsule,delayed 40 mg PO DAILY 12/10/23 06/12/24 History release tramadol 50 mg tablet 50 mg PO Q6H PRN pain #10 tabs 12/17/23 06/12/24 Rx tramadol 50 mg tablet 50 mg PO Q6H PRN pain #20 tabs 06/19/24 Rx Allergies Allergy/AdvReac Type Severity Reaction Status Date / Time No Known Allergies Allergy Verified 06/19/24 10:05 Exam Narrative: NAD A+O x3 Assessment and Plan Assessment and plan (1) 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
[2024-12-26 09:33] VITALS: BMI 25.8
--- NOTE | 2024-12-26 09:34 | PC.NURSE ---
Report to the Outpatient Waiting Room, entrance under the green pavilion located off [facility], at time _0615_ on date _[id number]_. Planned Procedure Time: _0815_.? Time changes happen often and if your time is changed the preop area will call you the afternoon before. - You and your visitor will be asked to self-screen and do not enter if you have any COVID symptoms. Please call surgeon if you need to reschedule. - A mask is optional within the hospital at this time. Patients may have clear liquids (water, carbonated beverages, clear teas, apple juice) until 3 hours prior to surgery with a maximum of 20 ounces. - No food from midnight until time of surgery and no smoking, or chewing tobacco (or any form of nicotine). No chewing gum, candy or mints. Take only the following medications with a SIP of water on the morning of surgery: ___Metoprolol____ DO NOT STOP ANY OF YOUR OTHER PRESCRIPTION MEDICATIONS PRIOR TO SURGERY EXCEPT THE FOLLOWING Hold all vitamins and supplements for 3 days per anesthesiologist. Medications to discontinue per physician Date to take last dose Please no make-up, nail kiswahili, hairspray, perfume, deodorant, or body powder the day of surgery.? No jewelry (including any body piercings) or valuables the day of surgery, leave them at home.? Please take a shower or bath the night before, or the morning of, surgery with an antibacterial soap.? Wear comfortable, loose fitting clothing.? - Jewelry must be removed prior to entering the operating room.? Rings and piercings that are not removed may be cut off. - The hospital will not accept responsibility for valuables.? - Please leave all valuables, including medications, at home the day of surgery. If you are going home after surgery, a licensed power screwdriver operator must drive you home.? - NO public transportation without another adult if you receive anesthesia. - We recommend that an adult stay with you for 24 hours following discharge. - We also recommend that you do not drive, make important decision, drink alcoholic beverages, or take any drugs that were not prescribed by your health care provider for at least 24 hours after your discharge time. Follow any additional instructions given to you from your surgeon. Telephone instructions given to __Lowell___and asked if any additional questions and then verbalized understanding. Patient advised to call surgeon office or pre surgery nurse liaison [phone] if any additional questions.
--- OUTSIDE RECORDS SUMMARY | 2024-12-29 01:08 | XMS_ITS | Referral Summary ---
Author Organization [facility] Address [address] [place] [phone] Care Team Providers Care Environmental Services Tech Name Role Phone Jose Medina ALDO Primary Care Provider [phone] Allergies No known active allergies Medications ofloxacin (OCUFLOX) 0.3 % ophthalmic solutionIndicati ons:as needed 0 05/06/2019 Activ e omeprazole (PriLOSEC) 20 mg capsule Take 20 mg by mouth daily Active Active Problems Problem Noted Date Diagnosed Date Skin lesions 05/08/2019 Assessment & Plan (05/08/2019 7:03 PM CDT): Overall Condition: New Acute Problem Treatment: Referral: Derm-Dr. Mack Follow up PRN Bilateral hearing loss due to cerumen impaction 05/08/2019 Assessment & Plan (05/08/2019 7:04 PM CDT): Overall Condition: New Acute Problem and s/p Ear Lavage Treatment: New Medication: OTC Deborax Follow up PRN Sleep apnea 09/01/2017 Chronic fatigue 09/01/2017 Benign prostatic hyperplasia with lower urinary tract symptoms 09/01/2017 Gastro-esophageal reflux disease without esophag itis 07/02/2016 Social History Tobacco Use Types Packs/Day Years Used Date Smoking Tobacco: Never Alcohol Use Standard Drinks/Week Comments Not Currently 0 (1 standard drink = 0.6 oz pur e alcohol) Personal Safety Answer Date Recorded Getting School Help Needed Not on file 10/14 Sex and Gender Information Value Date Recorded Sex Assigned at Not on file Legal Sex Male 7:47 PM ALIGNING INSPECTOR Gender Identity Male 10/25/2020 1:24 PM CDT Sexual Orientation Straight 10/25/2020 1: 24 PM CDT Last Filed Vital Signs Vital Sign Reading Time Taken Comments Blood Pressure 120/70 08/14/2021 1:12 PM ALIGNING INSPECTOR Pulse 88 08/14/2021 1:12 PM ALIGNING INSPECTOR Temperature 37 C (98.6 F) 05/08/2019 3:48 PM CDT Respiratory Rate 16 05/08/2019 3:48 PM CDT Oxygen Saturation 97% 08/14/2021 1:12 PM ALIGNING INSPECTOR Inhaled Oxygen Concentration - - Weight 85.7 kg (189 lb) 08/14/2021 1:12 PM ALIGNING INSPECTOR Height 177.8 cm (5' 10) 08/14/2021 1:12 PM ALIGNING INSPECTOR Body Mass Index 27.12 08/14/2021 1:12 PM ALIGNING INSPECTOR Plan of Treatment Not on file Insurance [employer]ICE [employer] PPO [place] Care Teams Environmental Services Tech Relationship Specialty Start Date End Date Jose Medina NP [address] [place] [address] PCP - General Nurse Practitioner 10/28/20
--- OUTSIDE RECORDS SUMMARY | 2024-12-29 01:08 | XMS_ITS | Encounter Summary ---
Author Organization [facility] Facility Care Team Providers Care Automotive Service Advisor Name Role Phone Brian Drew MD Primary Care Provider [phone] Jose Medina NP Primary Care Provider [phone] Encounter Details Date Type Department Care Team (Latest Contact Info) Description 04/26/2018 Orders Only [facility] CLINCONV ProviderPedro MD [address] [place] [id number] Social History Tobacco Use Types Packs/Day Years Used Date Smoking Tobacco: Never Assessed Sex and Gender Information Value Date Recorded Sex Assigned at Not on file Legal Sex Male 7:47 PM TECHNICAL AIDE Gender Identity Male 10/25/2020 1:24 PM CDT Sexual Orientation Straight 10/25/2020 1: 24 PM CDT documented as of this encounter Plan of Treatment Not on file documented as of this encounter Procedures Procedure Name Priority Date/Time Associated Diagnosis Comments SCAN - LABS 06/02/2018 12:00 AM CDT SCAN - LABS 06/02/2018 12:00 AM CDT documented in this encounter Results * SCAN - LABS (06/02/2018 12:00 AM CDT) Narrative 06/02/2018 12:00 AM CDT Ordered by an unspecified provider. Historical Provider Final Res ult * SCAN - LABS (06/02/2018 12:00 AM CDT) Narrative 06/02/2018 12:00 AM CDT Ordered by an unspecified provider. us Historical Provider Final Res ult documented in this encounter Visit Diagnoses Not on filedocumented in this encounter Care Teams Automotive Service Advisor Relationship Specialty Start Date End Date Brian Drew MD PCP - General Family Medicine 05/08/19 10/27/20 Jose Medina NP [address] [place] [address] PCP - General Nurse Practitioner 10/28/20 documented as of this encounter
--- OUTSIDE RECORDS SUMMARY | 2024-12-29 01:08 | XMS_ITS | Encounter Summary ---
Author Organization [facility] Address [address] [place] [address] Care Team Providers Care Kiss Mixer Name Role Phone Hipolito Christiansen MD Unavailable [phone] Twan Mueller MD Unavailable [phone] Robi Rader MD Unavailable [phone] Jose Medina Primary Care Provider + Latricia Martin MD Unavailable Encounter Details Date Type Department Care Team (Late Contact Info) Description 03/28/2019 Lab Requisition [facility] Care Pathology Lab [address] [place] [address] Lori Gonzalez MD [address] [place] [address] Illness Social History Tobacco Use Types Packs/Day Years Used Date Smoking Tobacco: Never Assessed Sex and Gender Information Value Date Recorded Sex Assigned at Not on file Legal Sex Male 2:25 PM CDT Gender Identity Not on file Sexual Orientation Not on file documented as of this encounter Plan of Treatment Upcoming Encounters Date Type Department Care Team ([facility] Contact Info) Description 03/23/2025 7:30 AM CDT Office Visit [facility] [address] [place] [address] Jose Medina APRN-CNP [address] [place] [address] documented as of this encounter Procedures Procedure Name Priority Date/Time Associated Diagnosis Comments PATHOLOGY TISSUE Routine 03/24/2019 5:24 PM CDT Illness documented in this encounter Results * PATHOLOGY TISSUE (03/24/2019 5:24 PM CDT) Case Report Surgical Pathology Report Case: [id number] Authorizing Provider: Lori Gonzalez MD Collected: 03/24/2019 05:24 PM Ordering Location: [facility] Pathology Lab Received: 03/28/2019 05:25 PM Pathologist: Nadia White MD Specimen: Slide Consultation, OSC: 03/29/2019 7:19 PM CDT [facility] Final Diagnosis Urinary bladder, erythema, biopsy (, 03/24/2019): - Chronic cystitis with plasma cells and eosinophils (see description) 03/29/2019 7:19 PM CDT [facility] PATH[facility] LAB at 1919 CDT Microscopic Description and Comment The urinary bladder biopsy has a modestly disrupted urothelium overlying lamina propria with intense chronic inflammation. The inflammatory infiltrate contains lymphocytes, abundant plasma cells, and abundant eosinophils (17 eosinophils per high power field; calculated 71 per mm2). The density of eosinophils is moderate, and could be seen in other types of cystitis as well as in less florid eosinophilic cystitis. The superficial lamina propria has proliferating capillaries and a small amount of hemorrhage. Findings could be compatible with a clinical diagnosis of interstitial cystitis. 03/29/2019 7:19 PM CDT [facility] PATH[facility] Clinical History 48 year old man, clinical impression Hunner's ulcer 03/29/2019 7:19 PM CDT [facility] PATH[facility] Materials Received Received is 1 H and E stained slide (A1) from [facility], [address] [place] [address], [address], [place] [address], labeled with the patient s name Lowell Agee and , along with the corresponding pathology gross description also labeled with the patient's full name Lowell Agee . All material will be returned. 03/29/2019 7:19 PM CDT [facility] PATHOLOGY LAB Disclaimer The performance characteristics of all immunohistochemical and indirect immunofluorescence stains (if any) cited in this report were determined by the Histopathology Laboratory of [facility]. Some of these tests were developed by our own laboratory and have not been cleared or approved by the US Food and Drug Administration. The FDA does not require this test to go through premarket FDA review. These tests are used for clinical purposes. They should not be regarded as investigational or for research. This laboratory is certified under the Clinical Laboratory Improvement Amendments (CLIA) as qualified to perform high complexity clinical laboratory testing. This case has been personally reviewed and interpreted by the attending (teaching) pathologist. 03/29/2019 7:19 PM CDT [facility] PATHOLOGY LAB Embedded Images 03/29/2019 7:19 PM T [facility] PATHOLOGY LAB Pathology/Cytolo gy SURGICAL PATHOLOGY CONSULTATION AND REPORT ON REFERRED SLIDES PREPARED ELSEWHERE / Unknown 03/24/2019 5:24 PM CDT 03/28/2019 5:25 PM CDT us Lori Gonzalez MD LAB - PATHOLOGY/CYTOLOGY ORDERAB LES Final Result Performing Organization Address City/State/[facility] Co de Phone Number [facility] PATHOLOGY LAB [facility] [phone] documented in this encounter Visit Diagnoses Diagnosis Illness Other unknown and unspecified cause of morbidity or mortality documented in this encounter Care Teams Kiss Mixer Relationship Specialty Start Date End Date Adam Jose, PHYSICAL SECURITY ENGINEER-MOLD MAKER APPRENTICE [address] [place] [address] PCP - General Nurse Practitioner 01/18/23 Hipolito Christiansen MD [address] [address] Interventional Cardiology 03/04/22 [place] [address] [address] [facility] [address] [place] [phone] Urology 03/04/22 Robi Rader MD [address] [place] [address] Physician Cardiology 10/27/22 Latricia Martin MD [address] [facility], [address] [place] [address] Gastroenterology 08/04/23 documented as of this encounter
--- OUTSIDE RECORDS SUMMARY | 2024-12-29 01:09 | XMS_ITS | Clinical Summary ---
Author Organization [facility] Address [address] [place] [phone] Care Team Providers Care Control Board Operator Name Role Phone Jose Medina ALDO Primary Care Provider [phone] Allergies No known active allergies Medications ofloxacin [...] Gastro-esophageal reflux disease without esophag itis 07/02/2016 Medical History Medical History Date Comments Hyperlipidemia Family History Relation Name Status Comments Father Alive Mother Alive Social History Tobacco Use Types Packs/Day Years Used Date Smoking Tobacco: Never Alcohol Use Standard Drinks/Week Comments Not Currently 0 (1 standard drink = 0.6 oz pur e alcohol) Personal Safety Answer Date Recorded Getting School Help Needed Not on file 10/14 Sex and Gender Information Value Date Recorded Sex Assigned at Not on file Legal Sex Male 7:47 PM MOLDED GOODS CONTROLS OPERATOR Gender Identity Male 10/25/2020 1:24 PM CDT Sexual Orientation Straight 10/25/2020 1: 24 PM CDT Obstetrics History Last Filed Vital Signs Vital Sign Reading Time Taken Comments Blood Pressure 120/70 08/14/2021 1:12 PM MOLDED GOODS CONTROLS OPERATOR Pulse 88 08/14/2021 1:12 PM MOLDED GOODS CONTROLS OPERATOR Temperature 37 C (98.6 F) 05/08/2019 3:48 PM CDT Respiratory Rate 16 05/08/2019 3:48 PM CDT Oxygen Saturation 97% 08/14/2021 1:12 PM MOLDED GOODS CONTROLS OPERATOR Inhaled Oxygen Concentration - - Weight 85.7 kg (189 lb) 08/14/2021 1:12 PM MOLDED GOODS CONTROLS OPERATOR Height 177.8 cm (5' 10) 08/14/2021 1:12 PM MOLDED GOODS CONTROLS OPERATOR Body Mass Index 27.12 08/14/2021 1:12 PM MOLDED GOODS CONTROLS OPERATOR Plan of Treatment Not on file Insurance CHOICE [facility] PPO [place] Care Teams Control Board Operator Relationship Specialty Start Date End Date Jose Medina NP [address] [place] [address] PCP - General Nurse Practitioner 10/28/20
--- OUTSIDE RECORDS SUMMARY | 2024-12-29 01:09 | XMS_ITS | Encounter Summary ---
Author Organization [facility] Address [address] [facility] [place] [address] Care Team Providers Care Heel Seam Rubber Name Role Phone Hipolito Christiansen MD Unavailable [phone] Twan Mueller MD Unavailable [phone] Robi Rader MD Unavailable [phone] Jose Medina Primary Care Provider + Latricia Martin MD Unavailable Encounter Details Date Type Department Care Team (Late Contact Info) Description 11/04/2020 Op/Procedure Report External [facility] [address] [address] Document, Scanned Social History Tobacco Use Types Packs/Day Years Used Date Smoking Tobacco: Never Assessed Sex and Gender Information Value Date Recorded Sex Assigned at Not on file Legal Sex Male 2:25 PM CDT Gender Identity Not on file Sexual Orientation Not on file documented as of this encounter Plan of Treatment Upcoming Encounters Date Type Department Care Team (Late Contact Info) Description 03/23/2025 7:30 AM CDT Office Visit [facility] [address] [place] [phone] Jose Medina APRN-CNP [address] [place] [phone] documented as of this encounter Visit Diagnoses Not on filedocumented in this encounter Care Teams Heel Seam Rubber Relationship Specialty Start Date End Date Jose Medina, MANAGER COMPENSATION-FOREIGN LAW CONSULTANT [address] [place] [address] PCP - General Nurse Practitioner 01/18/23 Hipolito Christiansen MD [address] [facility] [address] [place] [phone] Interventional Cardiology 03/04/22 [place] [address] [address] Urology 03/04/22 Robi Rader MD [address] [place] [address] Physician Cardiology 10/27/22 Latricia Martin MD [address] [facility], [address] [place] [address] Gastroenterology 08/04/23 documented as of this encounter
--- OUTSIDE RECORDS SUMMARY | 2024-12-29 01:09 | XMS_ITS | Clinical Summary ---
Author Organization [facility] Address [address] [place] [address] Care Team Providers Care Broadcast Traffic Coordinator Name Role Phone Hipolito Christiansen MD Unavailable [phone] Twan Mueller MD Unavailable [phone] Robi Rader MD Unavailable [phone] Jose Medina APRN-[facility] Primary Care Provider + Latricia Martin MD Unavailable Source Comments [facility],non-owned Affiliates and Associated Physician Practices is amultiple site organization consisting of ambulatory clinics and hospital sitesin [place], [place], [place] and [place]. This disclosure is being madepursuant to the Care Everywhere program and may not contain all information available regarding this patient. Last updated 18.[facility] Allergies No known active allergies Medications * Be aware that medications may not be up to date on this document. Alwaysverify current medications with the patient. metoprolol succinate XL 24hr (Toprol XL) 25 MG tablet Take 1 (one) tablet by mouth at bedtime Active tadalafil (Cialis) 5 MG tabletIndication s:Erectile dysfunction, unspecified erectile dysfunction type Take 1 (one) tablet by mouth once daily 90 tablet 4 4 Active omeprazole (PriLOSEC) 40 MG capsuleIndicatio ns:Gastro-esopha geal reflux disease without esophagitis Take 1 (one) capsule by mouth once daily 90 capsule 4 4 Active tiZANidine (Zanaflex) 2 MG tabletIndication s:Acute bilateral low back pain, unspecified whether sciatica present Take 1 (one) tablet by mouth every 8 hours as needed for Muscle Spasms 30 tablet 5 Active cephalexin (Keflex) 500 MG capsuleIndicatio ns: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 Take 1 (one) capsule by mouth 3 times daily for 7 days 21 capsule 5 12/13/19 25 Active Problems Problem Noted Date Diagnosed Date Substernal chest pain 02/10/2023 Erectile dysfunction 02/10/2023 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 Mixed hyperlipidemia 03/04/2022 Seasonal allergies 03/04/2022 Prostate cancer screening 03/04/2022 Ulcer of bladder 03/04/2022 Bilateral hearing loss due to cerumen impaction 05/08/2019 Overview (03/04/2022): Last Assessment & Plan: Overall Condition: New Acute Problem and s/p Ear Lavage Treatment: New Medication: OTC Deborax Follow up PRN Last Assessment & Plan: Overall Condition: New Acute Problem and s/p Ear Lavage Treatment: New Medication: OTC Deborax Follow up PRN Skin lesions 05/08/2019 Overview (03/04/2022): Last Assessment & Plan: Overall Condition: New Acute Problem Treatment: Referral: Kinjal Mack Follow up PRN Last Assessment & Plan: Overall Condition: New Acute Problem Treatment: Referral: Kinjal Mack Follow up PRN Bilateral hearing loss due to cerumen impaction 05/08/2019 Overview (03/11/2022): Last Assessment & Plan: Overall Condition: New Acute Problem and s/p Ear Lavage Treatment: New Medication: OTC Deborax Follow up PRN Skin lesions 05/08/2019 Overview (03/11/2022): Last Assessment & Plan: Overall Condition: New Acute Problem Treatment: Referral: Derm-Dr. 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 12/19/2024 Travel 12/05/2024 7:30 AM CDT Procedure visit [facility] - Dermatology [address] [place] [phone] Geovanny Kohler MD 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 11/27/2024 8:00 AM CDT Office Visit [address] [phone] Jose Medina APRN-ANAMIKA Acute bilateral low back pain, unspecified whether sciatica present (Primary Dx); Chronic left SI joint pain; Screening for diabetes mellitus (DM) 11/06/[address] [phone] Jose Medina APRN-PUTAWAY DRIVER Results 11/01/[address] [phone] Jose Medina APRN-CNP Results (XR) 10/27/2024 8:35 AM CDT - 10/27/2024 11:59 PM CDT Hospital Encounter [facility] - Radiology [address] [place] [phone] Jose Medina APRN-CNP Discharge Disposition: Home or Self Care 10/27/2024 7:30 AM CDT Office Visit [address] [phone] Jose Medina APRN-CNP Acute bilateral low back pain, unspecified whether sciatica present (Primary Dx); Chronic left SI joint pain 10/23/2024 Orders Only [address] [phone] Jose Medina APRN-CNP 10/23/[address] [phone] Jose Medina APRN-CNP Question from Last 3 Months Immunizations Immunization Administration Dates Next Due ANGELA IZQUIERDO PRIMARY 18+YR 10/21/2020 MMR VACCINE 06/14/1992 TD (AGE 8-ADULT) 06/14/1992 Family History Medical History Relation Name Comments Cancer - Prostate Father Relation Name Status Comments Father Social History Tobacco Use Types Packs/Day Years Used Date Smoking Tobacco: Never Smokeless Tobacco: Never Tobacco Cessation:Counseling Given: Not Answered Alcohol Use Standard Drinks/Week Comments Never 0 (1 standard drink = 0.6 oz pur e alcohol) PHQ-2 Answer Date Recorded Patient Health Questionnaire-2 Score 0 11/27/2024 Sex and Gender Information Value Date Recorded Sex Assigned at Not on file Legal Sex Male 2:25 PM CDT Gender Identity Not on file Sexual Orientation Not on file Last Filed Vital Signs Vital Sign Reading Time Taken Comments Blood Pressure 138/86 11/27/2024 7:57 AM CDT Pulse 77 11/27/2024 7:57 AM CDT Temperature 36.7 C (98 F) 11/27/2024 7:57 AM CDT Respiratory Rate 18 11/27/2024 7:57 AM CDT Oxygen Saturation 97% 11/27/2024 7:57 AM CDT Inhaled Oxygen Concentration - - Weight 83 kg (183 lb) 11/27/2024 7:57 AM CDT Height 180.3 cm (5' 11) 11/27/2024 7:57 AM CDT Body Mass Index 25.52 11/27/2024 7:57 AM CDT Plan of Treatment Upcoming Encounters Date Type Department Care Team ([facility] st Contact Info) Description 03/23/2025 7:30 AM CDT Office Visit [facility]- Family Medicine [address] [place] [phone] Jose Medina, COMPENSATION AND BENEFITS MANAGER-PUTAWAY DRIVER [address] [place] [phone] Health Maintenance Due Date Last Done Comments COLOGUARD (AGES 45-75) - COLON CA SCREENING 1970 CT COLONOGRAPHY - COLON CA SCREENING 1970 FIT - COLON CA SCREENING 1970 FLEX SIG - COLON CA SCREENING 1970 DTAP/TDAP/TD VACCINES (2 - Td or Tdap) 06/14/2002 06/14/1992 PNEUMOCOCCAL VACCINE 50+ (1 of 1 - PCV) 2021 ZOSTER VACCINE (1 of 2) 2021 SCREENING FOR DIABETES 03/11/2025 03/11/2022 INFLUENZA VACCINE (Season Ended) 2025 Postponed from 04/02/2025 (Patient Refused) COVID-19 VACCINE (2 - season) 2026 10/21/2020 Postponed from 04/02/2024 (Patient Refused) LIPID TESTING 05/23/2029 05/23/2024, 03/11/2022 COLON MONITORING 11/04/2030 11/04/2020 COLONOSCOPY - COLON CA SCREENING 11/04/2030 11/04/2020, 11/04/2020 (Done Outside Per Report) Colorectal Cancer Screening 11/04/2030 DEPRESSION SCREENING Completed 10/27/2024, 08/13/2023, 10/23/2022, Additional history exists HEPATITIS B VACCINE Discontinued HEPATITIS C SCREENING Discontinued HIB VACCINE Aged Out No longer eligi ble based on patient's age to complete this topic HIV SCREENING Discontinued HPV VACCINE Aged Out No longer eligi ble based on patient's age to complete this topic MENINGOCOCCAL (Group B) VACCINE SHARED DECISION-MAKING Aged Out No longer eligible based on patient's age to complete this topic MENINGOCOCCAL GROUPS A/C/Y/W VACCINE Aged Out No longer eligible based on patient's age to complete this topic Procedures Procedure Name Priority Date/Time Associated Diagnosis Comments NE FULL THICK GRFT NOS,EAR,LID <20SQCM Routine 12/05/2024 11:32 AM CDT 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 NE [facility]MSRG MOHS MG TQ H/N/H/F/G EA ADDL STAG Routine 12/05/2024 11:32 AM CDT 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 NE CHMSRG MOHS MG TQ H/N/H/F/G 1ST STAG 5 BLOC Routine 12/05/2024 11:32 AM CDT 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 XR LUMBAR SPINE 2 OR 3VW Routine 10/27/2024 8:55 AM CDT Acute bilateral low back pain, unspecified whether sciatica present XR SI JOINTS 3VW OR MORE Routine 10/27/2024 8:55 AM CDT Chronic left SI joint pain LIPID PROFILE (EXT RESULT ENTRY) Routine 05/23/2024 COMPREHENSIVE METABOLIC PANEL Routine 03/11/2022 7:10 AM CDT Mixed hyperlipidemia HM COLONOSCOPY Routine 11/04/2020 from Last 3 Months or Most Recently Relevant to Health Maintenance Results * NE [facility] MOHS MG TQ H/N/H/F/G 1ST STAG 5 BLOC, NE [facility] MOHS MG TQ H/N/H/F/G EA ADDL STAG, NE FULL THICK GRFT NOS,EAR,LID <20SQCM (12/05/2024 11:32 AM CDT) Narrative Geovanny Kohler MD - 12/05/2024 11:32 AM CDT Geovanny Kohler MD 12/05/2024 12:57 PM Mohs Micrographic Surgery Operative Note Procedure: Mohs micrographic surgery Date of service: 12/05/2024 Location: Left superior helix Preop diagnosis: Squamous cell carcinoma, well differentiated Postop diagnosis: Squamous cell carcinoma, well differentiated Mohs AUC score: 8 Number of stages: 2 Preop size: 1.0 x 0.5 cm Postop size: 2.0 x 0.7 cm Depth of final defect: perichondrium Previous dermpath accession #: [id number] Repair type: full-thickness skin graft Mohs accession #: [id number] Surgeon and Pathologist: Geovanny Kohler MD served as both surgeon and pathologist. No other physician was involved in the cancer removal or pathology interpretation. Assistants: Isidoro Braga MD Indications for Mohs Surgery Removal of the patient's tumor is complicated by the following clinical features: Clinical area critical for tissue conservation (Area H: central face, eyelids, eyebrows, nose, lips, chin, ear, periauricular, confucianist, genitalia, hands, feet, ankles, nail units and areola). Based on my medical judgement, Mohs surgery is the most appropriate treatment for this cancer compared to other treatments. I discussed alternative treatments to Mohs surgery and specifically discussed the risks and benefits of curettage, excision with permanent sections, and foregoing treatment. The rationale for Mohs was explained to the patient and consent was obtained. The risks, benefits and alternatives to therapy were discussed in detail. Specifically, the risks of infection, scarring, bleeding, prolonged wound healing, incomplete removal, allergy to anesthesia, nerve injury and recurrence were addressed. Prior to the procedure, the treatment site was clearly identified and confirmed by the patient. All components of Una Protocol/PAUSE Rule completed. STAGE I: The patient was placed on the operating table. The cancer was identified and outlined. The entire surgical field was prepped with hibiclens. The surgical site was anesthetized using Lidocaine 1% with epinephrine 1:100,000 buffered with sodium bicarbonate 8.4% in a 1:10 ratio.The area of clinically apparent tumor was debulked with a 2 mm curette. The layer of tissue was then surgically excised using a #15 blade and was then transferred onto a specimen sheet maintaining the orientation of the specimen. Hemostasis was obtained using monopolar electrodesiccation. The wound site was then covered with a dressing while the tissue samples were processed for examination. The specimen was oriented, mapped and divided. Each section was then inked and processed in the Mohs lab using the Mohs protocol and submitted for frozen section. The histopathologic sections were reviewed by the surgeon in conjunction with the reference map. Total blocks: 1 Total slides: 3 Frozen sections were examined by the surgeon and revealed residual tumor. Tumor was indicated in red on the reference map. Cell morphology: full thickness epidermal squamous cell atypia with cellular pleomorphism (SCCis) Pathological pattern: Squamous cell carcinoma in situ Depth of invasion: Epidermis Scar tissue: Not Present Perineural invasion: Not Present Inflammation obscuring possible tumor presence: Not Present STAGE II: The patient was prepped in the same fashion as the first stage. Using a similar technique to that described above, a thin layer of tissue was removed from all areas where tumor was visible on the previous stage. The tissue was again oriented, mapped, dyed, and processed as above. Histopathologic sections were reviewed in conjunction with the reference map. Total blocks: 1 Total slides: 2 Frozen sections were examined by the surgeon and revealed: No additional tumor. Histology: No malignant cells seen in the sections examined. No additional histologic findings appreciated. [facility] CLIA # [id number] Mohs Esl Professor: Candace Russell MD REPAIR: Full thickness skin graft Primary Surgeon: Geovanny Kohler MD Director Of Retail: Isidoro Braga MD Final Wound Size: 2.0 x 0.7 cm (graft) and 3.0 cm (donor) Sutures: 4-0 monocryl, 5-0 prolene Indication for graft: The patient is status post Mohs' cutaneous micrographic excision. After consideration of all the options, it was determined that a full thickness skin graft would offer the best chance for preservation of normal anatomic andfunctional relationships. The patient understood the procedure and risks which include bleeding, infection, graft failure, scar formation, trapdooring and discomfort. Informed consent was obtained in writing. The patientunderstood that a skin graft will go through color changes and may require refinement post-operatively. The patient was informed that perfect matches may not be possible. The patient then underwent the procedure as follows: The surgical defect, donor site, and surrounding skin were prepped with iodine. The defect was prepared and edges were trimmed. Hemostasis was achieved with electrodesiccation. A donor site on the Left neck with characteristics of good color and texture match was identified and outlined to fit the defect. A 15 blade was used to incise the graft to adipose along with standing cones to facilitate linear repair of the donor site. The graft was thinned and trimmed. Simple interrupted and simple running sutures were used to secure the graft to the recipient site. The donor site was then addressed. Intermediate repair of the donor site was performed to preserve the functional anatomy. Wide undermining was performed. Hemostasis was achieved with electrodesiccation. The subcutaneous tissue and dermis were closed with buried vertical mattress sutures. Epidermal closure was achieved with running sutures. The wound was cleansed with saline and ointment was applied along the wound surface. A sterile pressure dressing was applied. Wound care instructions were given verbally and in writing. The patient left the operating suite in stable condition. Patient was informed that additional refinement of the resulting surgical scar may be used as a second stage of this reconstruction. Postoperative cephalexin 500mg TID x7 days was/were sent to the patient's pharmacy. The patient will follow up in 2 week(s) for suture removal. Isidoro Braga MD Mohs MSDO Fellow, PGY5 A procedure was performed. I was present for the pablo portions of the procedure and was always immediately available. I have reviewed the note and edited it as necessary. Date of Service : 12/05/2024 Geovanny Kohler MD Geovanny Kohler MD PROCEDURE/MINOR SURGICAL ORDER AALIYAH Final Result * XR SI Joints 3Vw or More (10/27/2024 8:55 AM CDT) Anatomical Region Laterality Modality Pelvis, Lower Extremity Radiogra phic Imaging 11/04/2024 4:23 PM CDT Impressions 11/04/2024 4:24 PM CDT Degenerative changes of the bilateral sacroiliac joints without definite evidence of acute fracture or subluxation. THIS IS AN ELECTRONICALLY VERIFIED FINAL REPORT 11/04/2024 4:24 PM - Electronically signed by Toya Drew D.O. PS: PS Report ID: [id number] Reading Location: [id number] [facility] 11/04/2024 4:24 [place] [address] RADIOLOGY REPORT Patient Name: LOWELL BECK Date of Service:11/04/2024 Date of :1970 Age:54 Sex:M Requesting PhysicianJOSE MEDINA Examination:XR SI JOINTS 3VW OR MORE EXAM DESCRIPTION: XR SI JOINTS 3VW OR MORE REASON FOR STUDY: Left SI joint pain for 2 weeks. No known trauma. Pain has been less since taking oral steroid. Duration: . TECHNIQUE: 3 view(s) of the bilateral sacroiliac joints COMPARISON: None FINDINGS: There is no definite evidence of acute fracture or subluxation involving the bilateral sacroiliac joints. There are degenerative changes bilateral sacroiliac joints with joint space narrowing and sclerosis. There are mild degenerative changes bilateral hips with mild joint space narrowing and mild sclerosis. The visualized soft tissues are acutely grossly unremarkable. Procedure Note Toya Drew, - 11/04/2024 [place] [address] RADIOLOGY REPORT Patient Name: LOWELL BECK Date of Service:11/04/2024 Date of :1970 Age:54 Sex:M Requesting PhysicianJOSE MEDINA Examination:XR SI JOINTS 3VW OR MORE EXAM DESCRIPTION: XR SI JOINTS 3VW OR MORE REASON FOR STUDY: Left SI joint pain for 2 weeks. No known trauma. Pain has been less since taking oral steroid. Duration: . TECHNIQUE: 3 view(s) of the bilateral sacroiliac joints COMPARISON: None FINDINGS: There is no definite evidence of acute fracture or subluxation involving the bilateral sacroiliac joints. There are degenerative changes bilateral sacroiliac joints with joint space narrowing and sclerosis. There are mild degenerative changes bilateral hips with mild joint space narrowing and mild sclerosis. The visualized soft tissues are acutely grossly unremarkable. IMPRESSION Degenerative changes of the bilateral sacroiliac joints without definite evidence of acute fracture or subluxation. THIS IS AN ELECTRONICALLY VERIFIED FINAL REPORT 11/04/2024 4:24 PM - Electronically signed by Toya Drew D.O. PS: PS Report ID: [id number] Reading Location: [id number] Jose Medina COMPENSATION AND BENEFITS MANAGER-PUTAWAY DRIVER DIAGNOSTIC IMAGING ORDER AALIYAH Final Result * XR Lumbar Spine 2 or 3Vw (10/27/2024 8:55 AM CDT) Anatomical Region Laterality Modality Spine Radiographic [place] ging 11/04/2024 4:24 PM CDT Impressions 11/04/2024 4:25 PM CDT Mild multilevel lumbar spondylosis without definite evidence of acute fracture or subluxation. THIS IS AN ELECTRONICALLY VERIFIED FINAL REPORT 11/04/2024 4:25 PM - Electronically signed by Toya Drew D.O. PS: PS Report ID: [id number] Reading Location: [id number] Narrative 11/04/2024 4:25 [place] [address] RADIOLOGY REPORT Patient Name: LOWELL BECK Date of Service:11/04/2024 Date of :1970 Age:54 Sex:M Requesting PhysicianJOSE MEDINA Examination:XR LUMBAR SPINE 2 OR 3VW EXAM DESCRIPTION: XR LUMBAR SPINE 2 OR 3VW REASON FOR STUDY: Left SI joint pain for 2 weeks. No known trauma. Pain has been less since taking oral steroid. Duration: . TECHNIQUE: 3 radiographic view(s) of the lumbar spine. COMPARISON: None FINDINGS: There is no definite evidence of acute fracture or subluxation involving the lumbar spine. There is a minimal to mild dextroscoliotic curvature of the thoracolumbar spine centered at T12. There is a minimal retrolisthesis of T12 on L1, L1 on L2, and L2 on L3. There are multilevel degenerative changes lumbar spine with mild disc space narrowing, minimal endplate osteophytosis, and facet arthropathy. The visualized soft tissues are acutely grossly unremarkable. Procedure Note Toya Drew DO - 11/04/2024 [place] [id number] RADIOLOGY REPORT Patient Name: LOWELL BECK Date of Service:11/04/2024 Date of :1970 Age:54 Sex:M Requesting PhysicianJOSE MEDINA Examination:XR LUMBAR SPINE 2 OR 3VW EXAM DESCRIPTION: XR LUMBAR SPINE 2 OR 3VW REASON FOR STUDY: Left SI joint pain for 2 weeks. No known trauma. Pain has been less since taking oral steroid. Duration: . TECHNIQUE: 3 radiographic view(s) of the lumbar spine. COMPARISON: None FINDINGS: There is no definite evidence of acute fracture or subluxation involving the lumbar spine. There is a minimal to mild dextroscoliotic curvature of the thoracolumbar spine centered at T12. There is a minimal retrolisthesis of T12 on L1, L1 on L2, and L2 on L3. There are multilevel degenerative changes lumbar spine with mild disc space narrowing, minimal endplate osteophytosis, and facet arthropathy. The visualized soft tissues are acutely grossly unremarkable. IMPRESSION Mild multilevel lumbar spondylosis without definite evidence of acute fracture or subluxation. THIS IS AN ELECTRONICALLY VERIFIED FINAL REPORT 11/04/2024 4:25 PM - Electronically signed by Toya Drew D.O. PS: PS Report ID: [id number] Reading Location: [id number] Jose Medina COMPENSATION AND BENEFITS MANAGER-PUTAWAY DRIVER DIAGNOSTIC IMAGING ORDER AALIYAH Final Result * (ABNORMAL) LIPID PROFILE (EXT RESULT ENTRY) (05/23/2024) Cholesterol (EXTERNAL RESULT) 132 MG/DL Triglycerides (EXTERNAL RESULT) 153(H) MG/DL HDL (EXTERNAL RESULT) 32(L) MG/DL LDL Calculated (EXTERNAL RESULT) 75 MG/DL Blood BLOOD SPECIMEN / Unknown 05/23/2024 Jose Medina COMPENSATION AND BENEFITS MANAGER-PUTAWAY DRIVER LAB - CHEMISTRY ORDERABL ES Final Result * (ABNORMAL) COMPREHENSIVE METABOLIC PANEL (03/11/2022 7:10 AM [facility]) Sodium 141 137 - 145 mmol/L 03/11/2022 10:27 AM [facility]) Potassium 4.0 3.6 - 5.0 mmol/L 03/11/2022 10:27 AM [facility] ([facility]) Chloride 109(H) 98 - 107 mmol/L 03/11/2022 10:27 AM [facility] ([facility]) Carbon Dioxide 27 21 - 31 mmol/L 03/11/2022 10:27 AM [facility] ([facility]) Glucose 102(H) 75 - 100 mg/dL 03/11/2022 10:27 AM [facility] ([facility]) BUN 14 7 - 17 mg/dL 03/11/2022 10:27 AM [facility] ([facility]) Creatinine 1.10 0.66 - 1.25 mg/dL 03/11/2022 10:27 AM [facility] ([facility]) eGFR 71 >=60 ml/min/1.7 3*2 03/11/2022 10:27 AM [facility] ([facility]) Comment: Chronic kidney disease is defined as either the presence of kidney disease or a GFR of less than 60 ml/min/1.732 for 3 or more months and can be diagnosed without knowledge of its cause (NKF). Reference range in ml/min/1.732 For healthy adults > 60 Chronic Kidney Disease 15-60. GFR is not recommended for patients greater than 70 years. Reference ranges not available for patients under 18 yrs. Test will not be performed. BUN/Creatinine Ratio 12.3 6.0 - 26.0 03/11/2022 10:27 AM [facility] ([facility]) Calcium 9.0 8.4 - 10.7 mg/dL 03/11/2022 10:27 AM [facility] ([facility]) Protein Total 6.9 6.3 - 8.2 g/dL 03/11/2022 10:27 AM CDT [facility] ([facility]) Albumin 4.4 3.9 - 5.0 g/dL 03/11/2022 10:27 AM CDT [facility] ([facility]) Albumin/Globulin Ratio 1.7 1.1 - 2.2 g/dL 03/11/2022 10:27 AM CDT [facility] ([facility]) Bilirubin Total 0.3 0.2 - 1.3 mg/dL 03/11/2022 10:27 AM CDT [facility] ([facility]) Alkaline Phosphatase 84 38 - 126 U/L 03/11/2022 10:27 AM T [facility] ([facility]) AST 31 14 - 50 U/L 03/11/2022 10:27 AM CDT [facility] [facility] ([facility]) ALT 27 9 - 52 U/L 03/11/2022 10:27 AM T [facility] ([facility]) Blood BLOOD SPECIMEN / Unknown Lab Venipuncture / Unknown 03/11/2022 7:10 AM CDT 03/11/2022 7:10 AM CDT Jose Medina APRN-PUTAWAY DRIVER LAB - CHEMISTRY ORDERABL ES Final Result Performing Organization Address [facility]/State/ZIP Co de Phone Number [facility] ([facility]) [address] [place] [address] * COLONOSCOPY (11/04/2020) Impressions Marlene Ayala, RN - 11/04/2020 Diverticulosis; repeat in 10 years - see media Dr. Martin us Historical Provider HEALTH MAINTENANCE Final Result from Last 3 Months or Most Recently Relevant to Health Maintenance Insurance [facility]THE[facility] * Guarantor: [employer] Account Type Relation to Patient Date of Phone Billing Address Personal/Family [address] [place] [phone] [facility]THEM * Guarantor: [employer] Account Type Relation to Patient Date of Phone Billing Address Personal/Family [address] [place] [address] * Guarantor: [employer] Account Type Relation to Patient Date of Phone Billing Address Personal/Family [address] [place] [address] Care Teams Broadcast Traffic Coordinator Relationship Specialty Start Date End Date Jose Medina APRN-PUTAWAY DRIVER [address] [place] [phone] PCP - General Nurse Practitioner 01/18/23 Hipolito Christiansen MD [address] [phone] Interventional Cardiology 03/04/22 [place] [address] [phone] Urology 03/04/22 Robi Rader MD [address] [place] [phone] Physician Cardiology 10/27/22 Latricia Martin MD [facility], [address] [place] [address] Gastroenterology 08/04/23
[2024-12-29 06:35] VITALS: BP 142/87; PULSE 65; RESP 20; TEMP 36.3; O2SAT 100
[2024-12-29] MEDS: LACTATED RINGERS 1,000 ML 30 ML IV CONT (07:20)
--- NOTE | 2024-12-29 07:22 | WPDHPUPDATE1 ---
History and Physical Update Update Date/Time: 12/29/24 07:22 History and Physical has been reviewed, including an updated exam of the patient. There are NO changes in the patient's condition. Risks, benefits, and alternatives have been discussed and questions answered. Patient agrees to proceed with procedure.
--- NOTE | 2024-12-29 07:24 | P.PNAN_ITS ---
Anes - Initial Pre Proc Eval Procedure: Operation Date: 12/29/24 08:15 Proposed Procedures p Cystoscopy, Bladder Biopsy with Steroid Injection - Twan Mueller MD Date/Time: 12/29/24 07:24 Surgeon: Twan Mueller MD Pre Op Diagnosis: hunners ulcer Patient Data Age: 54 Gender: M Height: 1.8 m Weight: 84 kg Allergies Allergy/AdvReac Type Severity Reaction Status Date / Time No Known Allergies Allergy Verified 12/26/24 09:28 Home Medications ?Medication ?Instructions ?Recorded ?Confirmed ?Type metoprolol succinate 25 mg 25 mg PO QAM 05/31/23 12/29/24 History tablet,extended release 24 hr tadalafil 5 mg tablet 5 mg PO DAILY 05/31/23 12/29/24 History phenazopyridine 200 mg tablet 200 mg PO TID PRN pain 6 doses #6 06/07/23 12/26/24 Rx (Pyridium) tabs omeprazole 40 mg capsule,delayed 40 mg PO DAILY 12/10/23 12/29/24 History release tramadol 50 mg tablet 50 mg PO Q6H PRN pain #20 tabs 06/19/24 12/26/24 Rx tramadol 50 mg tablet 50 mg PO Q6H PRN pain #10 tabs 12/29/24 Rx Patient hx anesthesia problems: none Family hx anesthesia problems: none Results Review: All pre-operative results and documents have been reviewed as part of the pre-operative evaluation. [facility] Past Medical History Medical History (Updated 12/29/24 @ 07:44 by William De Guzman DO) Tachycardia PRIYANKA (obstructive sleep apnea) Chronic GERD Surgical History Surgical History Hx of cystoscopy Social History Social History Smoking status: Never smoker Second hand tobacco smoke exposure: No Alcohol intake: current Alcohol use details: VERY RARE Substance use: never Substance use type: does not use Living arrangements: with family Additional living arrangements comments: & KIDS Spiritual care concerns: No Anes - Eval Final PreProcedure Day of Procedure 12/29/24 07:24 Patient weight: overweight Heart: regular rate and rhythm Lungs: clear to auscultation Airway: Mallampati scale class II Neurological: alert and oriented Last oral intake: >/= 8 hours ASA classification: III Emergent: no Anesthetic plan: proceed Anesthesia type and monitoring: general GIVS and standard monitoring Results Review: All pre-operative results and documents have been reviewed as part of the pre- operative evaluation. Informed Consent: The patient's anesthetic plan and its attendant risks and benefits were disc ussed with the patient/family/POA. Questions were solicited and answers provided to the satisfaction of the patient/family/POA.
[2024-12-29] MEDS: ceFAZolin 2 GM/D5W 50 ML 2 GM/50 ML BAG IVPB (08:07)
--- NOTE | 2024-12-29 08:23 | S_PTH ---
PATIENT: Lowell Lay LOC: [facility]#:[id number] AGE/SX: 54/M ROOM: RE12/29/[address]: Twan Mueller MD : 1970 BED: DIS: 12/29/2024 SPEC #: [id number] RECD: 12/29/24 09:05 STATUS: JOSIE REQ #: [id number] [place]: 12/29/24 08:[address]: Twan Mueller DEPT: [facility] Surgical RECD BY: Mae Chinchilla Tissues: A - Bladder Biopsy Procedures: Hematoxylin and Eosin Stain Gross and Microscopic Level 4
[2024-12-29] MEDS: TRIAMCINOLONE ACET INJ 40 MG/ML VIAL 200 MG IM (08:32)
[2024-12-29 08:39] VITALS: BP 141/84; PULSE 71; RESP 18; O2SAT 95
--- NOTE | 2024-12-29 08:45 | W.PM.PROC2 ---
Procedure Note - Detailed Date of Procedure 12/29/24 Pre-op Diagnosis hunners ulcer Post-op Diagnosis Same Procedure Performed Cystoscopy, bladder biopsy, steroid injection Surgeon Twan Mueller MD Anesthesia MAC and Local (Uro jet) Indications A gentleman with recurrent Hunner's ulcers. Here today for repeat treatment Findings Hunner's ulcer anterior bladder neck Description of Procedure He has correctly identified. Informed consent obtained. From the operating room. He was given monitored anesthesia care. He was placed in dorsal lithotomy position. He was prepped draped sterile fashion. Time-out performed. Uro jet was applied. I performed cystoscopy. He had mild trabeculations. Ureteral orifices were normal. He had the area of Hunner's ulceration on the anterior bladder neck. I biopsied this area. I then injected Kenalog 5 cc total of 40 milligrams/mL. I then generously fulgurated the entire area. There was no bleeding under low insufflation pressures. Bladder was drained. He was awakened transferred to PACU in stable condition Estimated Blood Loss 1 Drains No Packing No Pathology Yes (Bladder biopsy) Complications No immediate complications Condition Stable Disposition PACU
[2024-12-29 09:10] VITALS: BP 159/91; PULSE 65; RESP 16
[2024-12-29 09:38] VITALS: BP 161/90; PULSE 60; RESP 16
== END 2024-12-29 09:42 | disposition home or self-care (01) ==
PROVIDERS: Visit Provider Urology
PROC: 0TBB8ZX Excision of Bladder, Via Natural or Artificial Opening Endoscopic, Diagnostic (ICD-10-PCS; CPT 52204; principal; 2024-12-29 08:15)
DX: N30.10 Interstitial cystitis (chronic) without hematuria (principal)
CPT/HCPCS: 52204; 52283; 88305; J0690; J2003; J2250; J2704; J3010; J3301; J7120